=== PATIENT | female | born 1990 | race Caucasian/White ===

== ENCOUNTER → 2020-03-07 12:46 | Outpatient (BNVA) | payer OTHER, SELFPAY | PROVIDERS: Family Provider Internal Medicine; PCP Internal Medicine; Visit Provider Nurse Practitioner Family | DX: Z20.828 Contact with and (suspected) exposure to other viral communicable diseases (principal) | CPT/HCPCS: 87635 ==

== ENCOUNTER 2021-05-25 13:25 | Emergency (ER) | payer OTHER, SELFPAY ==
[2021-05-25 13:36] VITALS: BP 122/74; PULSE 117; RESP 18; TEMP 39.3; O2SAT 92; BMI 50.1
--- NOTE | 2021-05-25 14:45 | XRR_ITS ---
PROCEDURE INFORMATION: Exam: XR Chest Exam date and time: 05/25/2021 2:45 PM Age: 31 years old Clinical indication: Dyspnea TECHNIQUE: Imaging protocol: XR of the chest. Views: 1 view. COMPARISON: No relevant prior studies available. FINDINGS: Lungs: Hypoinflated lungs. Ill-defined peripheral left basilar opacity. Pleural spaces: Unremarkable. No pleural effusion. No pneumothorax. Heart/Mediastinum: Unremarkable. No cardiomegaly. Bones/joints: Unremarkable. XR/XR chest 1V portable [id number] IMPRESSION: Hypoinflated lungs. Ill-defined peripheral left basilar opacity potentially atelectasis or infiltrate.
[2021-05-25 15:20] VITALS: PULSE 120; RESP 16; O2SAT 87; O2SAT 88; O2SAT 95
[2021-05-25] MEDS: sodium chloride 0.9% 1,000 ML 999 ML IV (15:37)
[2021-05-25] MEDS: acetaminophen 500 mg Tablet 1000 MG PO (15:37)
[2021-05-25 15:41] LABS: Hematocrit 46.3 % (37.0-47.0); Hemoglobin 15.8 g/dL (11.5-15.3); Lymphocytes # 0.9 10^3/uL (0.8-4.8); Lymphocytes % 19.2 %; Mean Corpuscular HGB Conc 34.1 g/dL (30.0-36.0); Mean Corpuscular Hemoglobin 29.8 pg (28.0-34.0); Mean Corpuscular Volume 87.4 fl (81-99); Mean Platelet Volume 9.8 fL (7.4-10.4); Monocytes # 0.2 10^3/uL (0.2-0.9); Monocytes % 4.9 %; Neutrophils # 3.58 10^3/uL (1.8-7.7); Neutrophils % 75.7 %; Nucleated Red Blood Cells % 0 %; Platelet Count 159 10^3/cmm (130-400); Red Cell Distribution Width 12.7 % (12.1-15.1); White Blood Count 4.7 10^3/uL (4.0-10.0)
[2021-05-25 15:58] LABS: Alanine Aminotransferase 67 U/L (0-33); Alkaline Phosphatase 62 IU/L (35-105); Anion Gap 16.8 (5-19); Aspartate Amino Transferase 51 U/L (0-32); Blood Urea Nitrogen 7 mg/dL (6-20); Calcium 7.8 mg/dL (8.5-10.5); Carbon Dioxide 24 mmol/L (22-29); Chloride 103 mmol/L (98-107); Globulin 2.8 g/dL (1.3-4.6); Glomerular Filtration Rate 84.2 mL/min (90-130); Glucose 103 mg/dL (65-115); Lipase 18 U/L (13-60); Osmolality Calculated 288 mOsm/kg (285-295); Potassium 3.8 mmol/L (3.5-5.1); Sodium 140 mmol/L (136-145); Total Bilirubin 0.3 mg/dL (0.15-1.2); Total Protein 6.8 g/dL (6.6-8.7)
[2021-05-25 17:12] LABS: Adenovirus Not Detected (NOT DETECT); Chlamydia Pneumoniae Not Detected (NOT DETECT); Coronavirus 229E,HKU1,NL63,OC4 Not Detected (NOT DETECT); Human Metapneumovirus Not Detected (NOT DETECT); Human Rhinovirus/Enterovirus Not Detected (NOT DETECT); Influenza A Not Detected (NOT DETECT); Influenza A H1 Not Detected (NOT DETECT); Influenza A H1-2009 Not Detected (NOT DETECT); Influenza A H3 Not Detected (NOT DETECT); Influenza B Not Detected (NOT DETECT); Mycoplasma Pneumoniae Not Detected (NOT DETECT); Parainfluenza Virus Type 1 Not Detected (NOT DETECT); Parainfluenza Virus Type 2 Not Detected (NOT DETECT); Parainfluenza Virus Type 3 Not Detected (NOT DETECT); Parainfluenza Virus Type 4 Not Detected (NOT DETECT); Respiratory Syncytial Virus A Not Detected (NOT DETECT); Respiratory Syncytial Virus B Not Detected (NOT DETECT); SARS-COV-2 Detected (NOT DETECT)
--- NOTE | 2021-05-25 17:29 | ED_ITS ---
HPI - General Adult General: Chief complaint: COVID symptoms Stated complaint: BODY ACHES Time Seen by Provider: 05/25/21 14:45 History of Present Illness: HPI narrative: CC: Shortness of breath, fever and generalized weakness HPI: This is a [31] yo patient presenting to the ED with malaise, generalized weakness, cough sputum production, and fever at home x 2days. Since onset of symptoms, has had some shortness of breath and decreased PO intake. NO recent travel. Endorses no sick contacts around. Reports nausea, denies vomiting/diarrhea. Denies chest pain, diaphoresis, other GI or complaints. Denies any pleuritic chest pain, recent surgery/immobilization/travel, or hematemesis or hx of VTE in the past. Onset: 2days ago Duration: ongoing for the last 2 days Location: home Severity: moderate Review of Systems Narrative: Constitutional: +subjective fever, +generalized weakness HEENT: No vision changes CV: No chest pain, no palpitations PULM: +cough, +dyspnea. GI: No abdominal pain, no N/V/D. : No dysuria MSKEL: No muscle pain SKIN: No new rashes, no lesions. NEURO: No headache, no focal weakness. HEME: No visible bruises PSYCH: Normal mood Physical Exam Narrative: EXAM NARRATIVE: Head: Atraumatic Eyes: PERRL, conjunctiva without injection ENT: Mucous membrane moist NECK: Supple without lymphadenopathy LUNGS: Coarse lung sounds, no crackles/wheezes/rhonchi on exam CV: RRR ABDOMEN: Soft, nontender EXTREMITY: Normal ROM SKIN: No rash or erythema NEURO: Awake and alert. No focal motor deficits. PSYCH: Normal mood and affect. Course Vital Signs: Vital signs: Vital Signs Temperature 98.4 F 05/25/21 17:35 Pulse Rate 108 H 05/25/21 17:35 Respiratory Rate 18 05/25/21 17:35 Blood Pressure 118/72 05/25/21 17:35 Pulse Oximetry 99 05/25/21 17:37 MDM - General Adult MDM Narrative: Medical decision making narrative: [31]yo patient presenting to the ED with shortness of breath, cough, and malaise with findings of coarse breath soudns. Workup today includes XR chest and labs. Given History, Exam, and Workup presentation most consistent with pneumonia.Presentation not consistent with PE, COPD exacerbation, Pneumothorax, TB, Atypical ACS, Esophageal Rupture, Toxic Exposure, Foreign Body Airway Obstruction. Workup: CXR Chest, COVID antigen/ COVID PCR send out Intervention: Tylenol 1gram, PO challenge, serial reassessment, oxygen, decadron [5:30pm] On reassessment, XR findings of infiltration. Covid positive/ afebrile today - likely covid PNA. Despite XR findings of focal infiltrate, do not suspect bacterial PNA at the present given onset of symptoms, no leukocytosis, and positive covid test. Patient continues to sat at 95% on 2L oxygen. Given concerns for possible respiratory decompensation, I have offered patient admission for serial/close observation in the emergency room. At [5:30pm], Fever and tachycardia improved with IVF. Patient is able to tolerate PO without any difficulities. I have discussed the risks of leaving hospital today including risks of sudden pulmonary decompensation leading to severe respiratory distress and even . Patient verbalizes understanding the consequence of the risks of leaving the hospital today and alternative including staying for serial observation. Given patient's strong desire to go home, I have offered patient outpatient oxygen tank/supply and portable pulse ox with proper instruction to use at home. Patient agrees to monitor oxygen saturation and to come back to the ED if there is any drops in pulse ox reading despite oxygen use. In addition, I have given patient strict follow up with PCP in 24 hrs for reevalutaion. Patient verbalizes understanding of all components of our discussion today and reassures me of follow up with PCP and close monitoring. Disposition: Discharge. Patient is given strict return precautions for any worsening dypsnea, changes in pulse ox numbers, any worsening fatigue, dehydration, generalized weakness, altered mental status, or any new or concerning issues. Lab Data: Labs: Lab Results 05/25/21 05/25/21 05/25/21 15:15 15:30 15:30 WBC 4.7 10^3/uL 10^3/ uL (4.0-10.0) RBC 5.30 10^6/uL 10^6 /uL (4.1-5.3) Hgb 15.8 g/dL H g/dL (11.5-15.3) Hct 46.3 % % (37.0-47.0) MCV 87.4 fl fl (81-99) MCH 29.8 pg pg (28.0-34.0) MCHC 34.1 g/dL g/dL (30.0-36.0) RDW 12.7 % % (12.1-15.1) Plt Count 159 10^3/cmm 10^3 /cmm (130-400) MPV 9.8 fL fL (7.4-10.4) Neut % (Auto) 75.7 % % Lymph % (Auto) 19.2 % % [place] % (Auto) 4.9 % % Eos % (Auto) 0.0 % % Baso % (Auto) 0.0 % % Neut # (Auto) 3.58 10^3/uL 10^3 /uL (1.8-7.7) Lymph # (Auto) 0.9 10^3/uL 10^3/ uL (0.8-4.8) [place] # (Auto) 0.2 10^3/uL 10^3/ uL (0.2-0.9) Eos # (Auto) 0.0 10^3/uL 10^3/ uL (0.0-0.8) Baso # (Auto) 0.0 10^3/uL 10^3/ uL (0.0-0.1) Nucleated RBC % (a uto) 0 % % Nucleated RBCs # 0.0 /100WBC /100W BC Sodium 140 mmol/L mmol/L (136-145) Potassium 3.8 mmol/L mmol/L (3.5-5.1) Chloride 103 mmol/L mmol/L (98-107) Carbon Dioxide 24 mmol/L mmol/L (22-29) Anion Gap 16.8 (5-19) BUN 7 mg/dL mg/dL (6-20) Creatinine 0.8 mg/dL mg/dL (0.5-0.9) GFR Calculation 84.2 mL/min L mL/ min (90-130) Glucose 103 mg/dL mg/dL (65-115) Calculated Osmolal ity 288 mOsm/kg mOsm/ kg (285-295) Calcium 7.8 mg/dL L mg/dL (8.5-10.5) Total Bilirubin 0.3 mg/dL mg/dL (0.15-1.2) AST 51 U/L H U/L (0-32) ALT 67 U/L H U/L (0-33) Alkaline Phosphata se 62 IU/L IU/L (35-105) Total Protein 6.8 g/dL g/dL (6.6-8.7) Albumin 4.0 g/dL g/dL (3.5-5.2) Globulin 2.8 g/dL g/dL (1.3-4.6) Lipase 18 U/L U/L (13-60) Coronavirus 229E ( PCR) Not detected (NOT DETECT) SARS-CoV-2 (PCR) Detected A (NOT DETECT) Imaging Data^: Other Imaging: Radiologist's impression: [employer] [id number] ReportSigned Patient: Mercedez Patel #: [id number]: 1990Acct#:[id number]/Sex: 31 / FADM Date: 05/25/21Loc: ERRoo/Bed:Attending Dr: Ordering Provider/Ordering MD: Clara Hutchins MD Date of Service: 05/25/21 Procedure(s): XR chest 1V portable [id number] Accession Number(s): [id number] Report Number: [id number] PROCEDURE INFORMATION: Exam: XR Chest Exam date and time: 05/25/2021 2:45 PM Age: 31 years old Clinical indication: Dyspnea TECHNIQUE: Imaging protocol: XR of the chest. Views: 1 view. COMPARISON: No relevant prior studies available. FINDINGS: Lungs: Hypoinflated lungs. Ill-defined peripheral left basilar opacity. Pleural spaces: Unremarkable. No pleural effusion. No pneumothorax. Heart/Mediastinum: Unremarkable. No cardiomegaly. Bones/joints: Unremarkable. XR/XR chest 1V portable [id number] IMPRESSION: Hypoinflated lungs. Ill-defined peripheral left basilar opacity potentially atelectasis or infiltrate. Dictated By:Harjinder Harley DOSigned By:Harjinder Harley DOSigned Date/Time:05/25/21 1552DD/ 1445 Discharge Plan Discharge Patient Disposition: Home Clinical Impression: COVID, Nausea & vomiting, Generalized weakness, Fever Condition: Stable Prescriptions: New Zofran 4 mg tablet 4 mg PO TID PRN (Reason: nausea and vomiting) 4 Days Qty: 12 RF: 0 acetaminophen 500 mg tablet 500 mg PO Q6H PRN (Reason: pain) 5 Days Qty: 20 RF: 0 Pepcid 20 mg tablet 20 mg PO BID PRN (Reason: abdominal pain) 10 Days Qty: 20 RF: 0 Maalox Advanced 1,000-60 mg tablet,chewable 1 tab PO TID PRN (Reason: abdominal pain) 7 Days Qty: 21 RF: 0 Discharge Orders: Discharge ED (Routine); Ordered 05/25/21 Ordered By: Clara Hutchins Other Ambulatory Orders: DME: Oxygen (Order) Location: None Selected Ordered By: Clara Hutchins Referrals: Dyllan Lazo DO [Primary Care Provider] - Discharge Diet: Advance as tolerated Discharge Activity: Resume usual activity Patient Instructions: COVID-19 (Coronavirus Disease 2019) (ED) Activity Restrictions/Additional Instructions: Come back to the emergency room if your symptoms worsen, have any shortness of breath, fever/chills, dehydration, inability tolerate p.o., any difficulty breathing, or any new or concerning complaints. Please return the emergency room if your pulse ox reads less than 88%. 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
[2021-05-25 17:35] VITALS: BP 118/72; PULSE 108; RESP 18; TEMP 36.9; O2SAT 99
[2021-05-25 17:37] VITALS: O2SAT 99
== END 2021-05-25 18:37 | disposition home or self-care (01) ==
PROVIDERS: Emergency Provider Emergency Medicine; PCP Internal Medicine
DX: U07.1 COVID-19 (principal)
CPT/HCPCS: 71045; 80053; 83690; 85025; 87635; 96360; 99283; J7030

== ENCOUNTER 2021-05-28 09:51 | Inpatient (IN) | payer OTHER, SELFPAY ==
[2021-05-28] VITALS (12 sets, daily range): BP systolic 79–135; BP diastolic 62–90; PULSE 84–102; RESP 17–26; TEMP 37.3; O2SAT 83–98; BMI 50.1
--- NOTE | 2021-05-28 10:17 | XR_ITS ---
WS: [id number] Portable AP upright chest, 05/28/2021 Clinical Data: covid, sob Comparison: Portable chest, 05/25/2021. Findings: The patient has bilateral patchy pulmonary opacities which have increased significantly in the last 3 days. The heart size remains the same. No pneumothorax is present. XR/XR chest 1V portable [id number] Impression: Increase in bilateral patchy pulmonary opacities consistent with acute pneumoni a.
--- NOTE | 2021-05-28 10:31 | ECG_ITS ---
[facility] Test Date: 2021-05-28 Pat Name: Danya Patel Department: Room: Gender: Female Facilities Supervisor: : 1990 Requested By: Maria A Kumari Order Number: [id number] Jerome MD: Fredis Swenson M.D. Measurements Intervals Dille Rate: 94 P: 48 MI: 149 QRS: 43 QRSD: 98 T: 47 QT: 328 QTc: 410 Interpretive Statements SINUS RHYTHM No previous ECG available for comparison Electronically Signed On 05-28-2021 20:45:06 AIR VALUE TESTER by Fredis Swenson M.D. [id number]
--- NOTE | 2021-05-28 10:31 | CT_ITS ---
WS: [id number] CTA OF THE CHEST WITH PULMONARY EMBOLISM PROTOCOL TECHNIQUE: High-resolution contrast enhanced CTA of the chest with coronal and sagittal reformatted i janies with pulmonary embolism protocol. MIP images are also reviewed. CLINICAL INFORMATION: COVID, hypoxia, tachycardia COMPARISON: None. DLP: 491.[address] scans at [facility] use at least one of these dose optimization techniques: automated e xposure control; mA and/or kV adjustment per patient size (includes targeted exams where dose is matc hed to clinical indication); or iterative reconstruction. FINDINGS: Shallow inspiration. Extensive diffuse hazy groundglass infiltrates throughout both lungs compatible with Covid 19 pneumonia. Proximal main pulmonary arteries are normal. Proximal segmental pulmonary ar teries appear patent. Subsegmental arteries not well evaluated due to breathing artifact and body hab itus. Normal caliber thoracic aorta. No axillary lymphadenopathy. Hepatomegaly. Diffuse fatty infiltration liver. Cholecystectomy clips. Adrenal glands are normal. Sma ll disc osteophyte complex in the mid thoracic spine at T6-T7. CT/CT angio chest PE protcl [id number] IMPRESSION: 1. No evidence of pulmonary embolus where visualized 2. Extensive diffuse hazy ground glass infiltrates compatible with Covid 19 pn [place]. 3. No mediastinal or hilar lymphadenopathy. 4. Cholecystectomy. 5. Hepatomegaly diffuse fatty infiltration liver.
--- NOTE | 2021-05-28 10:32 | ED_ITS ---
Documented by User: LUIS ANGEL Oliveros 05/28/21 14:05 HPI - COVID General: Chief Complaint: COVID symptoms Stated Complaint: COVID +/SOB/BODY ACHES/COUGHING BLOOD Time Seen by Provider: 05/28/21 10:04 Source: patient Mode of arrival: ambulatory Limitations: no limitations Triage information: Has fever, cough or shortness of breath . Exposure to COVID + person last 14 days History of Present Illness: HPI Narrative: Patient is a 31-year-old female who presents to ED today with complaints of worsening COVID symptoms. Patient complains of shortness of breath, cough, difficulty breathing, headache, and body aches. She was seen at our facility 2 to 3 days ago and apparently offered admission but she refused. According to patient she was sent home with 2L oxygen via nasal cannula and states she was satting in the mid 90s upon discharge. She said since that time symptoms have progressively worsened. She arrives to the ED today satting in the 80s on 5 to 6 L nasal cannula. PMH is significant for obesity. MD complaint: known COVID positive Prior covid testing: yes, results known Prior testing date: 05/25/21 COVID 19 common symptoms: positive non-productive cough, dyspnea, fatigue, body aches, headache(s) and nasal congestion; negative fever(s), chills, nausea, vomiting or diarrhea COVID 19 other sytmptoms: positive chest pain Pertinent comorbid conditions: obesity Treatment prior to arrival: oxygen COVID Results: SARS-CoV-2 RNA (RT-PCR) Not detected (NOT DETECTED) 03/07/20 12:46 03/07/20 Review of Systems Const: Reports: body aches and fatigue; Denies: fever(s) or chills Eyes: Denies: change in vision ENMT: Reports: nasal discharge and nasal congestion Card: Reports: chest pain, dyspnea on exertion and orthopnea; Denies: palpitations, irregular heart rhythm, edema, swelling of feet/ankles, lightheadedness, syncope, pre-syncope, leg pain with exertion or acrocyanosis Resp: Reports: dyspnea, non-productive cough and chest congestion; Denies: wheezing or hemoptysis GI: Denies: abdominal pain, nausea, vomiting or diarrhea Musc: Denies: neck pain, back pain, extremity pain or joint pain Skin/Breast: Denies: rash Neuro: Reports: headache(s); Denies: numbness in extremities, weakness in extremities, sensory changes or dizziness PFS ED PFSH: Medical History (Updated 05/28/21 @ 11:59 by Thiago Tinsley MD) Morbid obesity Family History (Updated 05/28/21 @ 14:00 by Thiago Tinsley MD) Denies family history of CAD (coronary artery disease) Cancer Social History (Updated 05/28/21 @ 14:11 by Thiago Tinsley MD) Smoking and tobacco status: never smoked Alcohol intake: unknown Substance/Drug Use: unknown Lives independently: Yes Household members: significant other Housing: House Physical Exam Const: COMMON NORMALS: patient oriented x3, no limitations and alert GENERAL APPEARANCE: cooperative and in distress (acute respiratory distress with hypoxia) NUTRITIONAL APPEARANCE: obese morbidly obese ORIENTATION/CONSCIOUSNESS: Yes awake, Yes oriented to person, Yes oriented to place and Yes oriented to time HENMT: COMMON NORMALS: normocephalic and atraumatic HEAD & SCALP: normocephalic and atraumatic Resp: EFFORT & INSPECTION: Yes labored AUSCULTATION: diminished lung sounds diffuse Cardio: COMMON NORMALS: regular rhythm RATE: tachycardic (mild) RHYTHM: regular rhythm Extremity: COMMON NORMALS: normal to inspection Neuro: SHAWN COMA SCALE: document GCS findings Shawn coma scale eye opening: Spontaneous Ashley coma scale verbal response: Orientated Ashley coma scale motor response: Obey commands Ashley coma scale total score: 15 COMMON NORMALS: patient oriented x3, moves all extremities, no focal motor deficits and no sensory deficits noted SENSORIUM/ORIENTATION: Yes alert, Yes oriented to person, Yes oriented to place and Yes oriented to time Skin: COMMON NORMALS: no rashes or lesions noted GENERAL SKIN EXAM: no rashes or lesions noted Course Consultations: Consultation #1: Dr. Simms-recommends heated high flow oxygen, IV remdesivir and dexamethasone and admit to ICU Vital Signs: Vital signs: Vital Signs Temperature 99.1 F 05/28/21 10:33 Pulse Rate 97 05/28/21 14:08 Respiratory Rate 20 H 05/28/21 14:08 Blood Pressure 135/90 05/28/21 14:08 Pulse Oximetry 95 05/28/21 14:08 MDM - COVID MDM Narrative: Medical decision making narrative: Patient now requiring 15 L on a nonrebreather to sat in the mid 90s. CXR showing an increase in her pulmonary opacities. CTA does not show any PE but does show extensive infiltrates consistent with COVID-19 pneumonia. Patient will need to be an admit to the hospital. Spoke to hospitalist Dr. Simms who graciously accepts admit. Recommend starting IV dexamethasone and remdesivir and having the patient placed on heated high flow. Recommends admission to ICU. I spoke to Dr. Yi who agrees with need for admission and will place admit orders. Lab Data: Labs: Lab Results 05/28/21 05/28/21 05/28/21 10:54 10:54 10:54 WBC 5.2 10^3/uL 10^3/ uL (4.0-10.0) RBC 5.22 10^6/uL 10^6 /uL (4.1-5.3) Hgb 15.3 g/dL g/dL (11.5-15.3) Hct 45.7 % % (37.0-47.0) MCV 87.5 fl fl (81-99) MCH 29.3 pg pg (28.0-34.0) MCHC 33.5 g/dL g/dL (30.0-36.0) RDW 12.8 % % (12.1-15.1) Plt Count 154 10^3/cmm 10^3 /cmm (130-400) MPV 9.7 fL fL (7.4-10.4) Neut % (Auto) 85.2 % % Lymph % (Auto) 13.0 % % [place] % (Auto) 1.2 % % Eos % (Auto) 0.0 % % Baso % (Auto) 0.2 % % Neut # (Auto) 4.41 10^3/uL 10^3 /uL (1.8-7.7) Lymph # (Auto) 0.7 10^3/uL L 10^ 3/uL (0.8-4.8) [place] # (Auto) 0.1 10^3/uL L 10^ 3/uL (0.2-0.9) Eos # (Auto) 0.0 10^3/uL 10^3/ uL (0.0-0.8) Baso # (Auto) 0.0 10^3/uL 10^3/ uL (0.0-0.1) Nucleated RBC % (a uto) 0 % % Nucleated RBCs # 0.0 /100WBC /100W BC PT 14.20 SECONDS SEC ONDS (12.1-14.9) INR 1.07 (0.8-1.2) APTT 32.8 SECONDS SECO NDS (23.9-36.7) Fibrinogen 501 mg/dL H mg/dL (174-498) D-Dimer 1.30 ug/mIFEU H u g/mIFEU (0-0.59) Sodium 138 mmol/L mmol/L (136-145) Potassium 3.7 mmol/L mmol/L (3.5-5.1) Chloride 99 mmol/L mmol/L (98-107) Carbon Dioxide 22 mmol/L mmol/L (22-29) Anion Gap 20.7 H (5-19) BUN 8 mg/dL mg/dL (6-20) Creatinine 0.9 mg/dL mg/dL (0.5-0.9) GFR Calculation 73.5 mL/min L mL/ min (90-130) Glucose 106 mg/dL mg/dL (65-115) Calculated Osmolal ity 285 mOsm/kg mOsm/ kg (285-295) Lactic Acid Calcium 7.9 mg/dL L mg/dL (8.5-10.5) Iron TIBC % Saturation Unsat Iron Binding Ferritin 3429 ng/mL H ng/m L (15-150) Total Bilirubin 0.4 mg/dL mg/dL (0.15-1.2) AST 244 U/L H U/L (0-32) ALT 240 U/L H U/L (0-33) Alkaline Phosphata se 73 IU/L IU/L (35-105) C-Reactive Protein 135.4 mg/L H mg/L (0.0-4.9) NT-Pro-B Natriuret Pep 38 pg/mL pg/mL (0-125) Total Protein 6.9 g/dL g/dL (6.6-8.7) Albumin 3.9 g/dL g/dL (3.5-5.2) Globulin 3.0 g/dL g/dL (1.3-4.6) Procalcitonin 100.00 ng/mL H ng /mL (0-0.5) TSH Urine Color Urine Appearance Urine pH Ur Specific Gravit y Urine Protein Urine Glucose (UA) Urine Ketones Urine Blood Urine Nitrate Urine Bilirubin Urine Urobilinogen Ur Leukocyte Lisa ase Urine RBC Urine WBC Ur Squamous Epith Cells Amorphous Sediment Urine Bacteria 05/28/21 05/28/21 05/28/21 10:54 10:54 10:54 WBC RBC Hgb Hct MCV MCH MCHC RDW Plt Count MPV Neut % (Auto) Lymph % (Auto) [place] % (Auto) Eos % (Auto) Baso % (Auto) Neut # (Auto) Lymph # (Auto) [place] # (Auto) Eos # (Auto) Baso # (Auto) Nucleated RBC % (a uto) Nucleated RBCs # PT INR APTT Fibrinogen D-Dimer Sodium Potassium Chloride Carbon Dioxide Anion Gap BUN Creatinine GFR Calculation Glucose Calculated Osmolal ity Lactic Acid 0.8 mmol/L mmol/L (0.5-2.2) Calcium Iron 16 ug/dL L ug/dL (37-145) TIBC 219 mcg/dl mcg/dl % Saturation 7.3 % L % (20-50) Unsat Iron Binding 203 ug/dL ug/dL (112-347) Ferritin Total Bilirubin AST ALT Alkaline Phosphata se C-Reactive Protein NT-Pro-B Natriuret Pep Total Protein Albumin Globulin Procalcitonin TSH 1.50 uIU/mL uIU/m L (0.27-4.20) Urine Color Urine Appearance Urine pH Ur Specific Gravit y Urine Protein Urine Glucose (UA) Urine Ketones Urine Blood Urine Nitrate Urine Bilirubin Urine Urobilinogen Ur Leukocyte Lisa ase Urine RBC Urine WBC Ur Squamous Epith Cells Amorphous Sediment Urine Bacteria 05/28/21 13:35 WBC RBC Hgb Hct MCV MCH MCHC RDW Plt Count MPV Neut % (Auto) Lymph % (Auto) [place] % (Auto) Eos % (Auto) Baso % (Auto) Neut # (Auto) Lymph # (Auto) [place] # (Auto) Eos # (Auto) Baso # (Auto) Nucleated RBC % (a uto) Nucleated RBCs # PT INR APTT Fibrinogen D-Dimer Sodium Potassium Chloride Carbon Dioxide Anion Gap BUN Creatinine GFR Calculation Glucose Calculated Osmolal ity Lactic Acid Calcium Iron TIBC % Saturation Unsat Iron Binding Ferritin Total Bilirubin AST ALT Alkaline Phosphata se C-Reactive Protein NT-Pro-B Natriuret Pep Total Protein Albumin Globulin Procalcitonin TSH Urine Color Yellow (Yellow) Urine Appearance Clear (CLEAR) Urine pH 6.5 (5-7) Ur Specific Gravit y 1.005 (1.005-1.030) Urine Protein 1+ H (Negative) Urine Glucose (UA) Norm (Normal) Urine Ketones 2+ H (Negative) Urine Blood Neg (Negative) Urine Nitrate Negative (Negative) Urine Bilirubin Neg (Negative) Urine Urobilinogen Norm mg/dL mg/dL (Negative) Ur Leukocyte Lisa ase Negative (Negative) Urine RBC 0-4 /hpf H /hpf (0-2) Urine WBC 0-4 /hpf H /hpf (0-5) Ur Squamous Epith Cells 0-4 /hpf H /hpf (0-5) Amorphous Sediment Not Reportable Urine Bacteria 1+ /hpf H /hpf (NONE) Imaging Data: CXR: Radiologist's impression: [place] [address] XRay Report Signed Patient: Danya Patel Unit #: [id number] : 1990 Age/Sex: 31 / F ADM Date: 05/28/21 Loc: ER Room/Bed: Attending Dr: Ordering Provider/Ordering MD: Maria A Kumari Date of Service: 05/28/21 Procedure(s): XR chest 1V portable 14046 Accession Number(s): [id number] Report Number: [id number] WS: [id number] Portable AP upright chest, 05/28/2021 Clinical Data: covid, sob Comparison: Portable chest, 05/25/2021. Findings: The patient has bilateral patchy pulmonary opacities which have increased significantly in the last 3 days. The heart size remains the same. No pneumothorax is present. XR/XR chest 1V portable [id number] Impression: Increase in bilateral patchy pulmonary opacities consistent with acute pneumonia. Dictated By: Sarah Natarajan MD Signed By: Sarah Natarajan MD Signed Date/Time: 05/28/21 1045 DD/ 1043 CTA Chest: Radiologist's impression: [place] [id number] CT Scan Report Signed Patient: Danya Patel Unit #: [id number] : 1990 Age/Sex: 31 / F ADM Date: 05/28/21 Loc: ER Room/Bed: Attending Dr: Ordering Provider/Ordering MD: Maria A Kumari Date of Service: 05/28/21 Procedure(s): CT angio chest PE protcl [id number] Accession Number(s): [id number] Report Number: [id number] WS: [id number] CTA OF THE CHEST WITH PULMONARY EMBOLISM PROTOCOL TECHNIQUE: High-resolution contrast enhanced CTA of the chest with coronal and sagittal reformatted images with pulmonary embolism protocol. MIP images are also reviewed. CLINICAL INFORMATION: COVID, hypoxia, tachycardia COMPARISON: None. DLP: 491.[address] scans at [facility] use at least one of these dose optimization techniques: automated exposure control; mA and/or kV adjustment per patient size (includes targeted exams where dose is matched to clinical indication); or iterative reconstruction. FINDINGS: Shallow inspiration. Extensive diffuse hazy groundglass infiltrates throughout both lungs compatible with Covid 19 pneumonia. Proximal main pulmonary arteries are normal. Proximal segmental pulmonary arteries appear patent. Subsegmental arteries not well evaluated due to breathing artifact and body habitus. Normal caliber thoracic aorta. No axillary lymphadenopathy. Hepatomegaly. Diffuse fatty infiltration liver. Cholecystectomy clips. Adrenal glands are normal. Small disc osteophyte complex in the mid thoracic spine at T6-T7. CT/CT angio chest PE protcl [id number] IMPRESSION: 1. No evidence of pulmonary embolus where visualized 2. Extensive diffuse hazy ground glass infiltrates compatible with Covid 19 pneumonia. 3. No mediastinal or hilar lymphadenopathy. 4. Cholecystectomy. 5. Hepatomegaly diffuse fatty infiltration liver. Dictated By: Moses Akhtar MD Signed By: Moses Akhtar MD Signed Date/Time: 05/28/21 1139 DD/ 1131 COVID Results: SARS-CoV-2 RNA (RT-PCR) Not detected (NOT DETECTED) 03/07/20 12:46 03/07/20 Discharge Plan Discharge Patient Disposition: Admitted As Inpatient Clinical Impression: COVID-19, Acute respiratory failure due to COVID-19 Condition: Stable Coding Level of Care Code ED Forming Machine Operator for Chg Fwd Exam Detailed Documented by User: Kathryn Yi MD 05/28/21 14:34 HPI - COVID General: Chief Complaint: COVID symptoms Stated Complaint: COVID +/SOB/BODY ACHES/COUGHING BLOOD Time Seen by Provider: 05/28/21 10:04 COVID Results: SARS-CoV-2 RNA (RT-PCR) Not detected (NOT DETECTED) 03/07/20 12:46 03/07/20 [facility] ED PFSH: Medical History (Updated 05/28/21 @ 11:59 by Thiago Tinsley MD) Morbid obesity Family History (Updated 05/28/21 @ 14:00 by Thiago Tinsley MD) Denies family history of CAD (coronary artery disease) Cancer Social History (Updated 05/28/21 @ 14:11 by Thiago Tinsley MD) Smoking and tobacco status: never smoked Alcohol intake: unknown Substance/Drug Use: unknown Lives independently: Yes Household members: significant other Housing: House Course Vital Signs: Vital signs: Vital Signs Temperature 99.1 F 05/28/21 10:33 Pulse Rate 97 05/28/21 14:08 Respiratory Rate 20 H 05/28/21 14:08 Blood Pressure 135/90 05/28/21 14:08 Pulse Oximetry 95 05/28/21 14:08 MDM - COVID MDM Narrative: Medical decision making narrative: This is a 31-year-old female with acute respiratory failure due to Covid?19 currently requiring OptiFlow 35 L @45% to maintain O2 sats above 90%. She is alert and oriented, in mild respiratory distress. She has been evaluated by the test lead application testing hospitalist and needs ICU admission, however there is a severe bed shortage throughout the state and we have not yet been able to find one. Will continue this efforts. In the meantime, she is being treated with remdesivir, vanc &zosyn, decadron, (preventative)anticoagulation, , vitamin C, Zinc. Lab Data: Labs: Lab Results 05/28/21 05/28/21 05/28/21 10:54 10:54 10:54 WBC 5.2 10^3/uL 10^3/ uL (4.0-10.0) RBC 5.22 10^6/uL 10^6 /uL (4.1-5.3) Hgb 15.3 g/dL g/dL (11.5-15.3) Hct 45.7 % % (37.0-47.0) MCV 87.5 fl fl (81-99) MCH 29.3 pg pg (28.0-34.0) MCHC 33.5 g/dL g/dL (30.0-36.0) RDW 12.8 % % (12.1-15.1) Plt Count 154 10^3/cmm 10^3 /cmm (130-400) MPV 9.7 fL fL (7.4-10.4) Neut % (Auto) 85.2 % % Lymph % (Auto) 13.0 % % [place] % (Auto) 1.2 % % Eos % (Auto) 0.0 % % Baso % (Auto) 0.2 % % Neut # (Auto) 4.41 10^3/uL 10^3 /uL (1.8-7.7) Lymph # (Auto) 0.7 10^3/uL L 10^ 3/uL (0.8-4.8) [place] # (Auto) 0.1 10^3/uL L 10^ 3/uL (0.2-0.9) Eos # (Auto) 0.0 10^3/uL 10^3/ uL (0.0-0.8) Baso # (Auto) 0.0 10^3/uL 10^3/ uL (0.0-0.1) Nucleated RBC % (a uto) 0 % % Nucleated RBCs # 0.0 /100WBC /100W BC PT 14.20 SECONDS SEC ONDS (12.1-14.9) INR 1.07 (0.8-1.2) APTT 32.8 SECONDS SECO NDS (23.9-36.7) Fibrinogen 501 mg/dL H mg/dL (174-498) D-Dimer 1.30 ug/mIFEU H u g/mIFEU (0-0.59) Sodium 138 mmol/L mmol/L (136-145) Potassium 3.7 mmol/L mmol/L (3.5-5.1) Chloride 99 mmol/L mmol/L (98-107) Carbon Dioxide 22 mmol/L mmol/L (22-29) Anion Gap 20.7 H (5-19) BUN 8 mg/dL mg/dL (6-20) Creatinine 0.9 mg/dL mg/dL (0.5-0.9) GFR Calculation 73.5 mL/min L mL/ min (90-130) Glucose 106 mg/dL mg/dL (65-115) Calculated Osmolal ity 285 mOsm/kg mOsm/ kg (285-295) Lactic Acid Calcium 7.9 mg/dL L mg/dL (8.5-10.5) Iron TIBC % Saturation Unsat Iron Binding Ferritin 3429 ng/mL H ng/m L (15-150) Total Bilirubin 0.4 mg/dL mg/dL (0.15-1.2) AST 244 U/L H U/L (0-32) ALT 240 U/L H U/L (0-33) Alkaline Phosphata se 73 IU/L IU/L (35-105) C-Reactive Protein 135.4 mg/L H mg/L (0.0-4.9) NT-Pro-B Natriuret Pep 38 pg/mL pg/mL (0-125) Total Protein 6.9 g/dL g/dL (6.6-8.7) Albumin 3.9 g/dL g/dL (3.5-5.2) Globulin 3.0 g/dL g/dL (1.3-4.6) Procalcitonin 100.00 ng/mL H ng /mL (0-0.5) TSH Urine Color Urine Appearance Urine pH Ur Specific Gravit y Urine Protein Urine Glucose (UA) Urine Ketones Urine Blood Urine Nitrate Urine Bilirubin Urine Urobilinogen Ur Leukocyte Lisa ase Urine RBC Urine WBC Ur Squamous Epith Cells Amorphous Sediment Urine Bacteria 05/28/21 05/28/21 05/28/21 10:54 10:54 10:54 WBC RBC Hgb Hct MCV MCH MCHC RDW Plt Count MPV Neut % (Auto) Lymph % (Auto) [place] % (Auto) Eos % (Auto) Baso % (Auto) Neut # (Auto) Lymph # (Auto) [place] # (Auto) Eos # (Auto) Baso # (Auto) Nucleated RBC % (a uto) Nucleated RBCs # PT INR APTT Fibrinogen D-Dimer Sodium Potassium Chloride Carbon Dioxide Anion Gap BUN Creatinine GFR Calculation Glucose Calculated Osmolal ity Lactic Acid 0.8 mmol/L mmol/L (0.5-2.2) Calcium Iron 16 ug/dL L ug/dL (37-145) TIBC 219 mcg/dl mcg/dl % Saturation 7.3 % L % (20-50) Unsat Iron Binding 203 ug/dL ug/dL (112-347) Ferritin Total Bilirubin AST ALT Alkaline Phosphata se C-Reactive Protein NT-Pro-B Natriuret Pep Total Protein Albumin Globulin Procalcitonin TSH 1.50 uIU/mL uIU/m L (0.27-4.20) Urine Color Urine Appearance Urine pH Ur Specific Gravit y Urine Protein Urine Glucose (UA) Urine Ketones Urine Blood Urine Nitrate Urine Bilirubin Urine Urobilinogen Ur Leukocyte Lisa ase Urine RBC Urine WBC Ur Squamous Epith Cells Amorphous Sediment Urine Bacteria 05/28/21 13:35 WBC RBC Hgb Hct MCV MCH MCHC RDW Plt Count MPV Neut % (Auto) Lymph % (Auto) [place] % (Auto) Eos % (Auto) Baso % (Auto) Neut # (Auto) Lymph # (Auto) [place] # (Auto) Eos # (Auto) Baso # (Auto) Nucleated RBC % (a uto) Nucleated RBCs # PT INR APTT Fibrinogen D-Dimer Sodium Potassium Chloride Carbon Dioxide Anion Gap BUN Creatinine GFR Calculation Glucose Calculated Osmolal ity Lactic Acid Calcium Iron TIBC % Saturation Unsat Iron Binding Ferritin Total Bilirubin AST ALT Alkaline Phosphata se C-Reactive Protein NT-Pro-B Natriuret Pep Total Protein Albumin Globulin Procalcitonin TSH Urine Color Yellow (Yellow) Urine Appearance Clear (CLEAR) Urine pH 6.5 (5-7) Ur Specific Gravit y 1.005 (1.005-1.030) Urine Protein 1+ H (Negative) Urine Glucose (UA) Norm (Normal) Urine Ketones 2+ H (Negative) Urine Blood Neg (Negative) Urine Nitrate Negative (Negative) Urine Bilirubin Neg (Negative) Urine Urobilinogen Norm mg/dL mg/dL (Negative) Ur Leukocyte Lisa ase Negative (Negative) Urine RBC 0-4 /hpf H /hpf (0-2) Urine WBC 0-4 /hpf H /hpf (0-5) Ur Squamous Epith Cells 0-4 /hpf H /hpf (0-5) Amorphous Sediment Not Reportable Urine Bacteria 1+ /hpf H /hpf (NONE) COVID Results: SARS-CoV-2 RNA (RT-PCR) Not detected (NOT DETECTED) 03/07/20 12:46 03/07/20 Discharge Plan Discharge Patient Disposition: Admitted As Inpatient Clinical Impression: COVID-19, Acute respiratory failure due to COVID-19 Condition: Stable Coding Level of Care Code ED Forming Machine Operator for Chg Fwd Exam Detailed
[2021-05-28 11:01] LABS: Basophils % 0.2 %; Hematocrit 45.7 % (37.0-47.0); Hemoglobin 15.3 g/dL (11.5-15.3); Lymphocytes # 0.7 10^3/uL (0.8-4.8); Mean Corpuscular HGB Conc 33.5 g/dL (30.0-36.0); Mean Corpuscular Hemoglobin 29.3 pg (28.0-34.0); Mean Corpuscular Volume 87.5 fl (81-99); Mean Platelet Volume 9.7 fL (7.4-10.4); Monocytes # 0.1 10^3/uL (0.2-0.9); Monocytes % 1.2 %; Neutrophils # 4.41 10^3/uL (1.8-7.7); Neutrophils % 85.2 %; Nucleated Red Blood Cells % 0 %; Platelet Count 154 10^3/cmm (130-400); Red Blood Count 5.22 10^6/uL (4.1-5.3); Red Cell Distribution Width 12.8 % (12.1-15.1); White Blood Count 5.2 10^3/uL (4.0-10.0)
[2021-05-28 11:20] LABS: INR 1.07 (0.8-1.2); Partial Thromboplastin Time 32.8 SECONDS (23.9-36.7)
[2021-05-28] MEDS: iohexol 350 mg/mL 100 mL Btl IV (11:20)
[2021-05-28 11:21] LABS: Fibrinogen 501 mg/dL (174-498)
[2021-05-28 11:22] LABS: Lactic Sepsis W/Reflex 0.8 mmol/L (0.5-2.2); Slide Review Slide Review Perform
[2021-05-28 11:33] LABS: NT Pro B Type Natriuretic Pept 38 pg/mL (0-125)
[2021-05-28 11:44] LABS: Alanine Aminotransferase 240 U/L (0-33); Albumin Level 3.9 g/dL (3.5-5.2); Alkaline Phosphatase 73 IU/L (35-105); Anion Gap 20.7 (5-19); Aspartate Amino Transferase 244 U/L (0-32); Blood Urea Nitrogen 8 mg/dL (6-20); C Reactive Protein 135.4 mg/L (0.0-4.9); Calcium 7.9 mg/dL (8.5-10.5); Carbon Dioxide 22 mmol/L (22-29); Chloride 99 mmol/L (98-107); Glomerular Filtration Rate 73.5 mL/min (90-130); Glucose 106 mg/dL (65-115); Osmolality Calculated 285 mOsm/kg (285-295); Potassium 3.7 mmol/L (3.5-5.1); Sodium 138 mmol/L (136-145); Total Bilirubin 0.4 mg/dL (0.15-1.2); Total Protein 6.9 g/dL (6.6-8.7)
--- NOTE | 2021-05-28 11:57 | USCV_ITS ---
Danya Patel Age: 31 Gender: F : 1990 Exam Date: 05/28/2021 12:39 Ordering Phys: Thiago Tinsley MD Technologist: FRANK Exam Location: [facility] [place] Indication: DVT HISTORY: Lower extremity swelling. PROCEDURES: The venous duplex Doppler examination of both lower extremities was performed in the standard fashion. The following venous structures were evaluated: common femoral vein, profunda vein, proximal portion of the greater saphenous vein, superficial femoral vein, and the popliteal vein. In addition, the posterior tibial and peroneal trunk were evaluated. FINDINGS: TDS Normal 2-D Doppler and augmentation and compressibility throughout the lower extremity venous structures. Additional imaging through the proximal calf veins also reveals no thrombus. Limited evaluation of the greater saphenous vein is patent with no thrombus.. CONCLUSIONS No evidence of right lower extremity DVT. No evidence of left lower extremity DVT. Moses Akhtar MD (Electronically Signed) Final Date: 28 May 2021 13:09 S
--- NOTE | 2021-05-28 11:59 | PM.HP ---
Providers/Chief Complaint Primary Care Provider: Dyllan Lazo DO Chief Complaint: COVID +/SOB/BODY ACHES/COUGHING BLOOD History of Present Illness Danya Patel is a 31 year old female with past surgical history of morbid obesity who was diagnosed with COVID-19 on 05/25, not vaccinated for COVID-19. Patient presented to the ER 2 days ago because of difficulty in breathing at that time she refused admission and was discharged home on nasal cannula 2 L. She comes back today with worsening difficulty in breathing, cough, myalgia requiring up to 8 L on it presentation currently on 35 L 45% saturating 89 to 90%. Review of Systems General: Reports: 10 or more systems reviewed and unremarkable except in HPI and below Const: Denies: fever(s), chills, body aches, change in appetite, change in weight, malaise, night sweats, diaphoresis, change in sleep pattern, daytime sleepiness or snoring Eyes: Denies: change in vision, blurry vision, photophobia, eye discomfort or eye discharge ENMT: Denies: throat pain, enlarged tonsils, hoarseness, mouth pain, oral sores, dry mouth, tinnitus, nasal congestion or post nasal drip Card: Denies: chest pain, palpitations, irregular heart rhythm, edema, swelling of feet/ankles, lightheadedness, syncope, pre-syncope, dyspnea on exertion, orthopnea, leg pain with exertion or acrocyanosis Resp: Denies: dyspnea, productive cough, non-productive cough, wheezing, stridor, pain on inspiration, change in phlegm color, hemoptysis or chest congestion GI: Denies: abdominal pain, nausea, vomiting, hematemesis, coffee ground emesis, dysphagia, heartburn, diarrhea, constipation, bloating, GI cramping, change in bowel habits, pain on defecation, hematochezia or melena : Denies: flank pain, dysuria, urinary frequency, urinary urgency, urinary hesitancy, nocturia or hematuria Musc: Denies: neck pain, back pain, extremity pain, joint pain, joint swelling, joint redness, joint stiffness or limited range of motion Neuro: Denies: headache(s), numbness in extremities, weakness in extremities, sensory changes, lack of coordination, difficulty walking, frequent falls, dizziness, vertigo, confusion, Slurred speech present, difficulty communicating thoughts or seizure-like activity Psych: Denies: anxiety, depression, mood swings, panic attacks, hopelessness or irritability Endo: Denies: polyuria, polydipsia, tired all the time, cold intolerance, excessive sweating, flushing or heat intolerance Soham/Lymph: Denies: easy bruising or easy bleeding All/Imm: Denies: tongue swelling, facial swelling or acute wheezing Medications/Allergies Home Medications Medication Instructions Recorded Confirmed Last Taken Type acetaminophen 500 mg PO Q6H PRN 5 Days #20 tab 05/25/21 05/28/21 Unknown Rx calcium carbonate-simethicone 1 tab PO TID PRN 7 Days #21 tab 05/25/21 05/28/21 Unknown Rx [Maalox Advanced] famotidine [Pepcid] 20 mg PO BID PRN 10 Days #20 tab 05/25/21 05/28/21 05/27/21 Rx ondansetron HCl [Zofran] 4 mg PO TID PRN 4 Days #12 tab 05/25/21 05/28/21 Unknown Rx Allergies Allergy/AdvReac Type Severity Reaction Status Date / Time No Known Allergies Allergy Unverified 05/25/21 13:36 PFSH Acute PFSH: Medical History (Updated 05/28/21 @ 11:59 by Thiago Tinsley MD) Morbid obesity Family History (Updated 05/28/21 @ 14:00 by Thiago Tinsley MD) Denies family history of CAD (coronary artery disease) Cancer Social History (Updated 05/28/21 @ 14:11 by Thiago Tinsley MD) Smoking and tobacco status: never smoked Alcohol intake: unknown Substance/Drug Use: unknown Lives independently: Yes Household members: significant other Housing: House Vitals/I&O/Wt Last Vital Signs Temp 99.1 F 05/28/21 10:33 Pulse 101 H 05/28/21 11:27 Resp 20 H 05/28/21 11:27 BP 79/64 05/28/21 10:33 Pulse Ox 95 05/28/21 11:27 Weight last 48 hrs Weight 149.685 kg Physical Exam Narrative: EXAM NARRATIVE: General: No acute distress, AO x3 HEENT: PERRLA, pupils bilaterally equal and reactive Chest: Normal vesicular breath sounds, no added sounds, equal good air entry bilaterally CVS: S1-S2 regular, no murmurs, no tachycardia, no gallops, no rubs Abdomen: Soft, nontender, no organomegaly, bowel sounds present Neuro: No focal deficits, no facial deformity, AO x3, power 5/5 in all limbs Data : 05/28/21 10:54 05/28/21 10:54 A&P Assessment and plan (1) Acute respiratory failure due to COVID-19: Status: Acute (2) COVID-19: Status: Acute Additional A&P Information Hypoxic respiratory failure secondary to COVID-19 pneumonia: Severe disease Switch from nonrebreather to heated high flow. Oxygen supplementation keeping saturation over 88%. Dexamethasone 6 mg daily. Remdesivir to finish a 5-day course. Vitamin C, zinc. DuoNebs every 6 hour, budesonide twice daily Pulmonary toilet with incentive spirometry flutter valve. We will monitor inflammatory markers including D-dimer, CRP every 48 hours. If getting elevated will dose Actemra. Patient was made aware of the same and he has given verbal consent. D-dimer elevated. CTA negative for pulmonary embolism. For now we will start patient on full dose anticoagulation given morbid obesity and high oxygen requirement. Will monitor for anemia or blood loss. Check sputum culture, procalcitonin, urine Legionella, bacterial antigen, blood culture, MRSA swab. Procalcitonin extremely elevated. For now as patient is requiring high oxygen supplementation will start patient on vancomycin and Zosyn. Will de-escalate antibiotics as per culture results Given hypoxia will try to keep patient as negative as possible. Patient clinically dehydrated for now and hypotensive upon arrival. Seems to have improved. For now hold off on any further hydration or diuresis today. Hastings catheterization. Strict input output charting, daily weights. Morbid obesity. Cannot rule out underlying obstructive sleep apnea. Full code. Yolandequasad will have a DVT prophylaxis. Famotidine for PUD prophylaxis. Mechanical soft diet. Patient's care discussed in detail with patient and her significant other Mr. Grande all over the phone. Guarded prognosis given ARDS, morbid obesity. Admit to ICU. If not able to get an ICU bed have asked the residential door unit installer to see if we can transfer patient to a different facility where ICU bed is available. The above has been discussed in detail with the patient and Mr. Grande as well. Attestations Medical Necessity Statement*: Admission for more than 2 midnights for management of hypoxic respiratory failure secondary to COVID-19 pneumonia Critical Care Time: The high probability of a clinically significant, sudden or life threatening deterioration of the patient's [respiratory] system(s) required my full and direct attention, intervention and personal management. The critical care time is as shown. 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
[2021-05-28 12:04] LABS: Ferritin 3429 ng/mL (15-150)
[2021-05-28] MEDS: sodium chloride 0.9% 1,000 ML 500 ML IV (12:09)
[2021-05-28] MEDS: dexamethasone 10 mg/mL INJ 6 MG IVP (12:59)
[2021-05-28] MEDS: famotidine 20 mg/2 mL INJ IVP (12:59)
[2021-05-28] MEDS: zinc gluconate 50 mg Tablet PO (13:10)
[2021-05-28] MEDS: remdesivir 200 MG in sodium chloride 0.9% (100 ml) 60 ML 100 MG IV (13:10)
[2021-05-28 14:09] LABS: Urine Appearance Clear (CLEAR); Urine Color Yellow (Yellow)
[2021-05-28 14:10] LABS: Add Urine Microscopic? YES; Bilirubin Urine Neg (Negative); Blood Urine Neg (Negative); Glucose Urine UA Norm (Normal); Ketones Urine 2+ (Negative); Leukocyte Esterase Urine Negative (Negative); Nitrate Urine Negative (Negative); Protein Urine 1+ (Negative); Specific Gravity, Urine 1.005 (1.005-1.030); Urobilinogen Urine Norm (Negative); pH Urine 6.5 (5-7)
[2021-05-28 14:12] LABS: Add Urine Culture? No; Bacteria Urine 1+ /hpf; RBC Urine 0-4 /hpf (0-2); Squamous Epithelial Cell Urine 0-4 /hpf (0-5); WBC Urine 0-4 /hpf (0-5)
[2021-05-28 14:18] LABS: Iron 16 ug/dL (37-145); Percent Saturation 7.3 % (20-50); Total Iron Binding Capacity 219 mcg/dl; Unsaturated Iron Binding 203 ug/dL (112-347)
[2021-05-28] MEDS: vancomycin 1,500 MG/300 ML PIGGYBACK 200 MG IV (14:32)
[2021-05-28] MEDS: benzonatate 100 mg Capsule PO (14:45)
[2021-05-28] MEDS: ipratropium-albuterol 3 mL Neb INHALATION ×2 (15:57→21:13)
--- NOTE | 2021-05-28 16:57 | PC.NURSE ---
PATIENT DISCUSSED WITH NURSE THAT PATIENT NO LONGER WISHES TO BE TRANSFERRED. PROVIDER NOTIFIED. PROVIDER DISCUSSION WAS TO TRY AND RE-EDUCATE PATIENT ON CURRENT OXYGEN SUPPLY AND NEEDS.
--- NOTE | 2021-05-28 17:07 | PC.NURSE ---
PATIENT SATURATION DROPS DUE TO PATIENT'S INABILITY TO STAY SITTING UP IN BED. PATIENT STATES BED HURTS TOO MUCH AND WANTS TO BE LYING OR FLAT. RT NOTIFIED AND WILL COME ASSESS.
[2021-05-28] MEDS: piperacillin-tazobactam 3.375 GM in sodium chloride 0.9% (plus) 50 ML IV (18:00)
[2021-05-28] MEDS: ascorbic acid 500 mg Tablet PO (18:58)
[2021-05-28] MEDS: ferrous gluconate 324 mg Tablet PO (18:59)
[2021-05-28] MEDS: budesonide 0.5 mg/2 mL Neb INHALATION (21:13)
[2021-05-29] VITALS (102 sets, daily range): BP systolic 86–165; BP diastolic 46–118; PULSE 68–115; RESP 17–47; TEMP 36.6–37.1; O2SAT 81–97
[2021-05-29] MEDS: acetaminophen 325 mg Tablet 650 MG PO ×2 (01:15→17:46)
[2021-05-29] MEDS: apixaban 5 mg Tablet PO ×3 (01:15→20:12)
[2021-05-29] MEDS: FUROsemide 10 mg/mL SDV 4mL 40 MG IVP ×2 (01:15→09:43)
[2021-05-29] MEDS: benzonatate 100 mg Capsule PO ×4 (01:15→20:12)
[2021-05-29] MEDS: vancomycin 1,500 MG/300 ML PIGGYBACK 200 MG IV ×2 (01:16→13:04)
[2021-05-29] MEDS: piperacillin-tazobactam 3.375 GM in sodium chloride 0.9% (plus) 50 ML IV ×2 (01:16→07:46)
[2021-05-29] MEDS: famotidine 20 mg/2 mL INJ IVP ×3 (01:16→23:49)
[2021-05-29] MEDS: ipratropium-albuterol 3 mL Neb INHALATION ×6 (02:07→23:08)
[2021-05-29 05:06] LABS: Hematocrit 39.9 % (37.0-47.0); Hemoglobin 13.6 g/dL (11.5-15.3); Lymphocytes # 1.1 10^3/uL (0.8-4.8); Lymphocytes % 18.4 %; Mean Corpuscular HGB Conc 34.1 g/dL (30.0-36.0); Mean Corpuscular Volume 87.9 fl (81-99); Mean Platelet Volume 9.9 fL (7.4-10.4); Monocytes # 0.2 10^3/uL (0.2-0.9); Monocytes % 2.8 %; Neutrophils # 4.71 10^3/uL (1.8-7.7); Nucleated Red Blood Cells % 0 %; Platelet Count 181 10^3/cmm (130-400); Red Blood Count 4.54 10^6/uL (4.1-5.3); Red Cell Distribution Width 12.8 % (12.1-15.1)
--- NOTE | 2021-05-29 06:00 | XRR_ITS ---
PROCEDURE INFORMATION: Exam: XR Chest Exam date and time: 05/29/2021 6:00 AM Age: 31 years old Clinical indication: Shortness of breath; Additional info: Covid TECHNIQUE: Imaging protocol: XR of the chest. Views: 1 view. COMPARISON: CR XR chest 1V portable [id number] 05/28/2021 10:38 AM FINDINGS: Lungs: Bilateral pulmonary infiltrates are present especially in the right base. The right basilar infiltrates have increased when compared to previous study. Pleural spaces: Unremarkable. No pleural effusion. No pneumothorax. Heart/Mediastinum: Unremarkable. No cardiomegaly. Bones/joints: Unremarkable. XR/XR chest 1V portable [id number] IMPRESSION: Worsening pulmonary infiltrates.
[2021-05-29 06:03] LABS: D Dimer 1.65 ug/mIFEU (0-0.59)
[2021-05-29 06:04] LABS: C Reactive Protein 142.8 mg/L (0.0-4.9); Chol HDL Ratio 2.48 mg/dL (0.0-4.40); Cholesterol 77 mg/dL (0-200); HDL Cholesterol 31 mg/dL (60-100); LDL Cholesterol Calculated 29 mg/dL (50-129); Triglycerides 85 mg/dL (0-150); VLDL Cholestrol Calculation 17 mg/dL (0-30)
[2021-05-29 06:11] LABS: Alanine Aminotransferase 190 U/L (0-33); Albumin Level 3.4 g/dL (3.5-5.2); Alkaline Phosphatase 67 IU/L (35-105); Aspartate Amino Transferase 151 U/L (0-32); Blood Urea Nitrogen 8 mg/dL (6-20); Calcium 7.4 mg/dL (8.5-10.5); Carbon Dioxide 19 mmol/L (22-29); Chloride 100 mmol/L (98-107); Globulin 3.1 g/dL (1.3-4.6); Glomerular Filtration Rate 84.2 mL/min (90-130); Glucose 95 mg/dL (65-115); Magnesium 1.8 mg/dL (1.7-2.3); Osmolality Calculated 284 mOsm/kg (285-295); Phosphorus 3.3 mg/dL (2.5-4.5); Sodium 138 mmol/L (136-145); Total Bilirubin 0.3 mg/dL (0.15-1.2); Total Protein 6.5 g/dL (6.6-8.7)
[2021-05-29 06:24] LABS: Estmated Average Glucose 100; Hemoglobin A1C 5.1 % (4.0-6.0)
[2021-05-29 06:56] LABS: Procalcitonin > 100.00 ng/mL (0-0.5)
--- NOTE | 2021-05-29 07:25 | PC.NURSE ---
Report received, assessment completed. VSS. Pt AAOX3. C/O water from HHFNC tubing getting into nose, tubing adjusted and emptied of water. 55L, 80% at this time. Lung sounds CTA. Hastings cath draining clear ted urine to BSD. Pt sitting upright in bed. Will encourage to be up in chair today. Will monitor.
[2021-05-29] MEDS: zinc gluconate 50 mg Tablet PO (07:46)
[2021-05-29] MEDS: ferrous gluconate 324 mg Tablet PO ×2 (07:46→17:45)
[2021-05-29] MEDS: ascorbic acid 500 mg Tablet PO ×2 (07:46→17:45)
[2021-05-29] MEDS: budesonide 0.5 mg/2 mL Neb INHALATION ×2 (08:12→19:51)
[2021-05-29] MEDS: potassium chloride ER 20 mEq Tablet 40 MEQ PO ×2 (09:43→10:22)
[2021-05-29] MEDS: guaiFENesin-codeine UDC 10 mL 5 ML PO ×2 (09:46→18:32)
[2021-05-29] MEDS: ondansetron 2 mg/ML SDV 2 mL 4 MG IVP (10:52)
[2021-05-29] MEDS: dexamethasone 4 mg/mL INJ 6 MG IVP (11:27)
--- NOTE | 2021-05-29 11:48 | PM.PN ---
Subjective Subjective: Interval history: No acute events overnight. Overnight patient was transitioned to ICU after she got a bed finally. Currently on examination she is sitting up in chair. Mood is better than yesterday. Working with I-S and Acapella today. Currently on 40 L 80% FiO2 saturating 92%. Looking mildly tachypneic on conversation. States feeling better than yesterday. Vitals/I&O/Wt Last Vital Signs Temp 98.0 F 05/29/21 08:00 Pulse 90 05/29/21 11:26 Resp 24 H 05/29/21 11:26 BP 116/72 05/29/21 08:00 Pulse Ox 94 05/29/21 11:26 05/28/21 05/29/21 05/29/21 22:59 06:59 14:59 Intake Total 350 / 1410 716.25 / 716.25 Output Total 3100 / 3100 Balance 350 / 1410 -3100 / -1690 716.25 / 716.25 Weight last 48 hrs Weight 149.685 kg Physical Exam Narrative: EXAM NARRATIVE: General: No acute distress, AO x3, gets tachypneic on conversation, on heated high flow HEENT: PERRLA, pupils bilaterally equal and reactive Chest: Normal vesicular breath sounds, bilateral coarse crackles present, equal limited air entry bilaterally CVS: S1-S2 regular, no murmurs, no tachycardia, no gallops, no rubs Abdomen: Soft, nontender, no organomegaly, bowel sounds present Neuro: No focal deficits, no facial deformity, AO x3, power 5/5 in all limbs Urinary Catheter Management^: Hastings: Cath Placed During This Visit: yes Reason for Continuing Indwelling Catheter: Accurate Measurement of Urinary Output in Critically Ill Patients Urinary Catheter Date of Insertion: 05/28/21 Urinary Catheter Time of Insertion: 13:35 Data : 05/29/21 04:06 05/29/21 04:06 Micro: Microbiology 05/28/21 13:35 MRSA Culture - Final Nose 05/28/21 13:35 Gram Stain - Final Sputum - Expectorated Sputum 05/28/21 13:35 Bacterial Antigens - Final Urine Kidney 05/28/21 13:35 Legionella Urinary Antigen - Final Urine Catheterized 05/28/21 14:46 Blood Culture - Preliminary Blood SPECIMEN COLLECTED 05/28/21 13:08 Blood Culture - Preliminary Blood SPECIMEN COLLECTED A&P Assessment and plan (1) Acute respiratory failure due to COVID-19: Status: Acute (2) COVID-19: Status: Acute (3) Bacterial pneumonia: Status: Acute Additional A&P Information Hypoxic respiratory failure secondary to COVID-19 pneumonia: Severe disease Oxygen supplementation keeping saturation over 88%. Dexamethasone 6 mg daily. Remdesivir to finish a 5-day course. Vitamin C, zinc. DuoNebs every 6 hour, budesonide twice daily Pulmonary toilet with incentive spirometry flutter valve. We will monitor inflammatory markers including D-dimer, CRP every 48 hours. Patient is a high suspicion of bacterial pneumonia given extremely high procalcitonin. Will avoid Actemra. D-dimer elevated. CTA negative for pulmonary embolism. For now we will continue on full dose anticoagulation given morbid obesity and high oxygen requirement. Will monitor for anemia or blood loss. Procalcitonin more than 100, urine Legionella bacterial antigen negative, blood cultures so far negative, MRSA swab negative, sputum culture final results pending. High suspicion of superadded bacterial pneumonia Stop vancomycin. Switch from Zosyn to imipenem. Levaquin to finish a 5-day course. Given hypoxia will try to keep patient as negative as possible. IV Lasix 20 mg stat. Plan for net -1 L in next 24 hours Strict input output charting, daily weights. Morbid obesity. Cannot rule out underlying obstructive sleep apnea. Full code. Cheikh will have a DVT prophylaxis. Famotidine for PUD prophylaxis. Mechanical soft diet. Patient's care discussed in detail with patient and her significant other Mr. Grande all over the phone. Guarded prognosis given ARDS, morbid obesity. Attestations Medical Necessity Statement*: Requires further hospitalization for management of hypoxic respiratory failure secondary COVID-19 pneumonia with high suspicion of superadded bacterial pneumonia Critical Care Time: The high probability of a clinically significant, sudden or life threatening deterioration of the patient's [respiratory] system(s) required my full and direct attention, intervention and personal management. The critical care time is as shown. 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
[2021-05-29] MEDS: remdesivir 100 MG in sodium chloride 0.9% (100 ml) 80 ML IV (17:46)
--- NOTE | 2021-05-29 18:19 | PC.NURSE ---
Shift Note Frequent safety and comfort rounds continue. Orders and/or nursing care completed as indicated. Patient monitored for response to intervention and treatment(s). Education provided includes treatment plan, medications, IS and flutter valve use, and oxygen weaning. Pt verbalizes understanding. No other issues noted. Pt prefers to be up in chair d/t ease of breathing. Will continue to monitor.
--- NOTE | 2021-05-29 19:10 | PC.NURSE ---
Up to chair Upon shift assessment, patient sitting in chair. All vitals stable. Acapella and IS on bedside table. Patient states does not want to wear SCDs tonight. Education provided on benefits of laying prone, using IS/acapella, and SCDs. Patient verbalized understanding.
--- NOTE | 2021-05-29 21:30 | PC.NURSE ---
Hygiene Patient received full bed bath, linen change, gown change, and hair was shampooed/brushed. Patient transferred from chair to bed with a decrease in oxygen saturation to 87%. Once settled in bed, oxygen saturation increased and maintained in the low 90s. Patient tolerated activity well, all other vitals stable.
[2021-05-30] VITALS (58 sets, daily range): BP systolic 99–143; BP diastolic 61–90; PULSE 56–101; RESP 18–50; TEMP 36.6–37.1; O2SAT 87–98; BMI 52.9
[2021-05-30] MEDS: guaiFENesin-codeine UDC 10 mL 5 ML PO ×2 (01:34→08:04)
[2021-05-30] MEDS: vancomycin 1,500 MG/300 ML PIGGYBACK 200 MG IV ×2 (01:34→10:14)
[2021-05-30 01:35] LABS: Vancomycin Trough 6.7 ug/mL (10-15)
[2021-05-30] MEDS: ipratropium-albuterol 3 mL Neb INHALATION ×5 (03:35→20:00)
--- NOTE | 2021-05-30 03:45 | PC.NURSE ---
Anxiety Patient states having severe anxiety over blood draws and treatment. Patient refused blood draws/ABGs, RR in the 30s, arms moving in an anxious manner. All other vitals stable. Dr. Rodriguez notified; order received for PO 0.5 mg Xanax TID PRN for anxiety. Medication administered per JUL. Patient allowed blood draws following.
[2021-05-30] MEDS: ALPRAZolam 0.5 mg Tablet PO (04:16)
[2021-05-30 06:52] LABS: Hematocrit 40.3 % (37.0-47.0); Hemoglobin 13.6 g/dL (11.5-15.3); Lymphocytes # 0.8 10^3/uL (0.8-4.8); Lymphocytes % 17.6 %; Mean Corpuscular HGB Conc 33.7 g/dL (30.0-36.0); Mean Corpuscular Hemoglobin 29.8 pg (28.0-34.0); Mean Corpuscular Volume 88.2 fl (81-99); Mean Platelet Volume 9.7 fL (7.4-10.4); Monocytes # 0.3 10^3/uL (0.2-0.9); Monocytes % 6.5 %; Neutrophils % 74.5 %; Nucleated Red Blood Cells % 0 %; Platelet Count 221 10^3/cmm (130-400); Red Blood Count 4.57 10^6/uL (4.1-5.3); Red Cell Distribution Width 12.9 % (12.1-15.1); White Blood Count 4.4 10^3/uL (4.0-10.0)
[2021-05-30 07:13] LABS: Alanine Aminotransferase 134 U/L (0-33); Albumin Level 3.6 g/dL (3.5-5.2); Alkaline Phosphatase 59 IU/L (35-105); Anion Gap 16.8 (5-19); Aspartate Amino Transferase 67 U/L (0-32); Blood Urea Nitrogen 9 mg/dL (6-20); Calcium 7.9 mg/dL (8.5-10.5); Carbon Dioxide 24 mmol/L (22-29); Chloride 105 mmol/L (98-107); Globulin 2.9 g/dL (1.3-4.6); Glomerular Filtration Rate 117.4 mL/min (90-130); Glucose 127 mg/dL (65-115); Osmolality Calculated 294 mOsm/kg (285-295); Potassium 3.8 mmol/L (3.5-5.1); Sodium 142 mmol/L (136-145); Total Bilirubin 0.3 mg/dL (0.15-1.2); Total Protein 6.5 g/dL (6.6-8.7)
[2021-05-30 07:23] LABS: Procalcitonin 43.17 ng/mL (0-0.5)
[2021-05-30 07:49] LABS: Slide Review Slide Review Perform
[2021-05-30] MEDS: budesonide 0.5 mg/2 mL Neb INHALATION ×2 (08:02→20:00)
[2021-05-30] MEDS: benzonatate 100 mg Capsule PO ×3 (08:04→20:42)
[2021-05-30] MEDS: zinc gluconate 50 mg Tablet PO (08:04)
[2021-05-30] MEDS: apixaban 5 mg Tablet PO ×2 (08:04→20:42)
[2021-05-30] MEDS: ascorbic acid 500 mg Tablet PO ×2 (08:04→17:12)
[2021-05-30] MEDS: ferrous gluconate 324 mg Tablet PO ×2 (08:04→17:12)
[2021-05-30 09:31] LABS: C Reactive Protein 44.2 mg/L (0.0-4.9)
[2021-05-30 09:43] LABS: D Dimer 0.56 ug/mIFEU (0-0.59)
[2021-05-30] MEDS: FUROsemide 10 mg/mL SDV 2mL 20 MG IVP (10:00)
[2021-05-30] MEDS: acetaminophen 325 mg Tablet 650 MG PO (10:09)
[2021-05-30] MEDS: ondansetron 2 mg/ML SDV 2 mL 4 MG IVP (10:09)
[2021-05-30] MEDS: dexamethasone 4 mg/mL INJ 6 MG IVP (11:33)
[2021-05-30] MEDS: famotidine 20 mg/2 mL INJ IVP ×2 (11:33→23:17)
--- NOTE | 2021-05-30 12:36 | P.PN_ITS ---
Subjective Subjective: Interval history: No acute events overnight. Patient remains hemodynamically stable afebrile. Today morning on examination sitting up in chair. Continues to remain on 50 L but down to 70% from 75% saturating more than 92%. Refused ABG in morning because of phobia to needles. Vitals/I&O/Wt Last Vital Signs Temp 98.8 F 05/30/21 08:00 Pulse 82 05/30/21 12:00 Resp 26 H 05/30/21 12:00 BP 140/72 05/30/21 12:00 Pulse Ox 93 05/30/21 12:00 05/29/21 05/30/21 05/30/21 22:59 06:59 14:59 Intake Total 540 / 1796.25 500 / 2296.25 640 / 640 Output Total 850 / 2350 Balance 540 / 296.25 -350 / -53.75 640 / 640 Weight last 48 hrs Weight 157.85 kg Physical Exam Narrative: EXAM NARRATIVE: General: No acute distress, AO x3, slightly better but still gets tachypneic on conversation, on heated high flow HEENT: PERRLA, pupils bilaterally equal and reactive Chest: Normal vesicular breath sounds, bilateral coarse crackles present, equal limited air entry bilaterally CVS: S1-S2 regular, no murmurs, no tachycardia, no gallops, no rubs Abdomen: Soft, nontender, no organomegaly, bowel sounds present Neuro: No focal deficits, no facial deformity, AO x3, power 5/5 in all limbs Urinary Catheter Management^: Hastings: Cath Placed During This Visit: yes Reason for Continuing Indwelling Catheter: Accurate Measurement of Urinary Output in Critically Ill Patients Urinary Catheter Date of Insertion: 05/28/21 Urinary Catheter Time of Insertion: 13:35 Data : 05/30/21 06:28 05/30/21 06:28 Micro: Microbiology 05/28/21 13:35 Gram Stain - Final Sputum - Expectorated Sputum Sputum Culture - Preliminary 05/28/21 13:08 Blood Culture - Preliminary Blood Coagulase negativ staphylococc 05/29/21 17:36 Blood Culture - Preliminary Blood SPECIMEN COLLECTED 05/29/21 17:37 Blood Culture - Preliminary Blood SPECIMEN COLLECTED 05/28/21 14:46 Blood Culture - Preliminary Blood NEGATIVE TO DATE 05/28/21 13:35 MRSA Culture - Final Nose 12/29/21 13:35 Bacterial Antigens - Final Urine Kidney A&P Assessment and plan (1) Acute respiratory failure due to COVID-19: Status: Acute (2) COVID-19: Status: Acute (3) Bacterial pneumonia: Status: Acute Additional A&P Information Hypoxic respiratory failure secondary to COVID-19 pneumonia: Severe disease Oxygen supplementation keeping saturation over 88%. Dexamethasone 6 mg daily. Remdesivir to finish a 5-day course. Vitamin C, zinc. DuoNebs every 6 hour, budesonide twice daily Pulmonary toilet with incentive spirometry flutter valve. We will monitor inflammatory markers including D-dimer, CRP every 48 hours. Patient is a high suspicion of bacterial pneumonia given extremely high procalcitonin. Will avoid Actemra. D-dimer trending down to normal. CTA negative for pulmonary embolism. For now we will continue on full dose anticoagulation given morbid obesity and high oxygen requirement. Will monitor for anemia or blood loss. Procalcitonin trending down, urine Legionella bacterial antigen negative, blood cultures so far negative, MRSA swab negative, sputum culture final results pending. High suspicion of superadded bacterial pneumonia Continue with imipenem, Levaquin. Levaquin to finish a 5-day course. Given hypoxia will try to keep patient as negative as possible. Repeat IV Lasix 20 mg stat. Plan for net -1 L in next 24 hours Strict input output charting, daily weights. Morbid obesity. Cannot rule out underlying obstructive sleep apnea. Full code. Cheikh will have a DVT prophylaxis. Famotidine for PUD prophylaxis. Mechanical soft diet. Patient's care discussed in detail with patient and her significant other Mr. Grande all over the phone. Guarded prognosis given ARDS, morbid obesity. Attestations Medical Necessity Statement*: Requires further hospitalization for management of hypoxic respiratory failure secondary COVID-19 pneumonia, superadded bacterial pneumonia Time Spent in Patient Care: Greater than 35 minutes (>than 50% of time spent in counselling and/or direct pt care on unit) . Coding Level of Care Code Acute Keg Header for [facility] Diagnoses Acute respiratory failure due to COVID-19 U07.1; J96.00 COVID-19 U07.1 Bacterial pneumonia J15.9
[2021-05-30] MEDS: levoFLOXacin 500 mg Tablet PO (13:33)
[2021-05-30] MEDS: remdesivir 100 MG in sodium chloride 0.9% (100 ml) 80 ML IV (17:50)
--- NOTE | 2021-05-30 18:04 | PC.NURSE ---
Shift Note Frequent safety and comfort rounds continue. Orders and/or nursing care completed as indicated. Patient monitored for response to intervention and treatment(s). Education provided includes treatment plan, medications and oxygen safety. Pt verbalizes understanding, makes all needs known. Denies any needs at this time. Appetite has improved some today and pt has been using IS and flutter valve every hour as directed. Will continue to monitor.
--- NOTE | 2021-05-30 22:20 | PC.NURSE ---
Back to Bed Patient transferred from chair to bed with no decrease in oxygen saturation. All vitals stable. No further needs stated at this time.
[2021-05-31] VITALS (57 sets, daily range): BP systolic 98–142; BP diastolic 62–88; PULSE 61–93; RESP 16–40; TEMP 36.7–37; O2SAT 91–99; BMI 53.1
[2021-05-31] MEDS: ipratropium-albuterol 3 mL Neb INHALATION ×7 (00:04→23:05)
[2021-05-31 04:00] LABS: Basophils % 0.2 %; Hematocrit 40.2 % (37.0-47.0); Hemoglobin 13.6 g/dL (11.5-15.3); Lymphocytes % 17.9 %; Mean Corpuscular HGB Conc 33.8 g/dL (30.0-36.0); Mean Corpuscular Hemoglobin 29.8 pg (28.0-34.0); Mean Platelet Volume 9.8 fL (7.4-10.4); Monocytes # 0.4 10^3/uL (0.2-0.9); Monocytes % 7.7 %; Neutrophils # 3.93 10^3/uL (1.8-7.7); Neutrophils % 71.6 %; Nucleated Red Blood Cells % 0 %; Platelet Count 267 10^3/cmm (130-400); Red Blood Count 4.57 10^6/uL (4.1-5.3); Red Cell Distribution Width 12.8 % (12.1-15.1); White Blood Count 5.5 10^3/uL (4.0-10.0)
[2021-05-31 04:24] LABS: Alanine Aminotransferase 200 U/L (0-33); Albumin Level 3.6 g/dL (3.5-5.2); Alkaline Phosphatase 64 IU/L (35-105); Anion Gap 17.7 (5-19); Aspartate Amino Transferase 151 U/L (0-32); Blood Urea Nitrogen 13 mg/dL (6-20); C Reactive Protein 17.1 mg/L (0.0-4.9); Calcium 8.2 mg/dL (8.5-10.5); Carbon Dioxide 23 mmol/L (22-29); Chloride 103 mmol/L (98-107); Globulin 3.1 g/dL (1.3-4.6); Glomerular Filtration Rate 144.9 mL/min (90-130); Glucose 140 mg/dL (65-115); Osmolality Calculated 292 mOsm/kg (285-295); Potassium 3.7 mmol/L (3.5-5.1); Sodium 140 mmol/L (136-145); Total Bilirubin 0.4 mg/dL (0.15-1.2); Total Protein 6.7 g/dL (6.6-8.7)
[2021-05-31] MEDS: levoFLOXacin 500 mg Tablet PO (05:26)
[2021-05-31 05:41] LABS: Slide Review Slide Review Perform
--- NOTE | 2021-05-31 06:00 | XRR_ITS ---
PROCEDURE INFORMATION: Exam: XR Chest Exam date and time: 05/31/2021 6:00 AM Age: 31 years old Clinical indication: Shortness of breath; Patient HX: F/u for covid pneumonia. On high flow 02 cannula. TECHNIQUE: Imaging protocol: XR of the chest. Views: 1 view. COMPARISON: CR (CHEST, ) 05/29/2021 4:46 AM FINDINGS: Lungs: Overall slight decreased pulmonary opacities with at least moderate residual bilateral pneumonia. Pleural spaces: Unremarkable. No pleural effusion. No pneumothorax. Heart/Mediastinum: Unremarkable. No cardiomegaly. Bones/joints: Unremarkable. XR/XR chest 1V portable [id number] IMPRESSION: Overall slight decreased pulmonary opacities with at least moderate residual bilateral pneumonia.
--- NOTE | 2021-05-31 07:07 | PC.NURSE ---
Shift Note Frequent safety and comfort rounds continue. Orders and/or nursing care completed as indicated. Patient monitored for response to intervention and treatment(s). OVerall uneventful shift: patient rested throughout night. Patient experienced some anxiety regarding lab draws but did not wish to take PO medication. Education provided on times and purpose of lab draws; understanding verbalized. Anxiety resolved with resting, all vitals stable. Oxygen requirements remain at 70% FIO2, 45 L on heated high flow. Will continue to monitor.
[2021-05-31] MEDS: zinc gluconate 50 mg Tablet PO (07:55)
[2021-05-31] MEDS: benzonatate 100 mg Capsule PO ×3 (07:55→21:43)
[2021-05-31] MEDS: ferrous gluconate 324 mg Tablet PO ×2 (07:55→17:09)
[2021-05-31] MEDS: ascorbic acid 500 mg Tablet PO ×2 (07:55→17:09)
[2021-05-31] MEDS: apixaban 5 mg Tablet PO ×2 (07:56→21:43)
[2021-05-31] MEDS: budesonide 0.5 mg/2 mL Neb INHALATION ×2 (08:05→19:26)
[2021-05-31] MEDS: famotidine 20 mg/2 mL INJ IVP ×2 (11:32→23:52)
[2021-05-31] MEDS: dexamethasone 4 mg/mL INJ 6 MG IVP (11:32)
--- NOTE | 2021-05-31 12:42 | P.PN_ITS ---
Subjective Subjective: Interval history: No acute events overnight. Denies any nausea, vomiting, headache. Again today morning on examination sitting up in chair. Working with I-S and Acapella. Feeling very tired today. Encouraged by the fact that oxygen supplementation is coming down. Been brought down to 50 L 65% saturating 96%. Able to come down further on FiO2 today. Vitals/I&O/Wt Last Vital Signs Temp 98.1 F 05/31/21 10:00 Pulse 86 05/31/21 12:00 Resp 19 H 05/31/21 12:00 BP 122/74 05/31/21 12:00 Pulse Ox 97 05/31/21 12:00 05/30/21 05/31/21 05/31/21 22:59 06:59 14:59 Intake Total 940 / 1940 580 / 2520 700 / 700 Output Total 1125 / 1125 625 / 1750 Balance -185 / 815 -45 / 770 700 / 700 Weight last 48 hrs Weight 158.757 kg Weight 157.85 kg Physical Exam Narrative: EXAM NARRATIVE: General: No acute distress, AO x3, slightly better but still gets tachypneic on conversation, on heated high flow HEENT: PERRLA, pupils bilaterally equal and reactive Chest: Normal vesicular breath sounds, bilateral coarse crackles present, equal limited air entry bilaterally CVS: S1-S2 regular, no murmurs, no tachycardia, no gallops, no rubs Abdomen: Soft, nontender, no organomegaly, bowel sounds present Neuro: No focal deficits, no facial deformity, AO x3, power 5/5 in all limbs Urinary Catheter Management^: Hastings: Cath Placed During This Visit: yes Reason for Continuing Indwelling Catheter: Accurate Measurement of Urinary Output in Critically Ill Patients Urinary Catheter Date of Insertion: 05/28/21 Urinary Catheter Time of Insertion: 13:35 Data : 05/31/21 03:10 05/31/21 03:10 Micro: Microbiology 05/28/21 13:35 Gram Stain - Final Sputum - Expectorated Sputum Sputum Culture - Preliminary 05/29/21 17:37 Blood Culture - Preliminary Blood NEGATIVE TO DATE 05/29/21 17:36 Blood Culture - Preliminary Blood NEGATIVE TO DATE 05/28/21 13:08 Blood Culture - Preliminary Blood Coagulase negativ staphylococc A&P Assessment and plan (1) Acute respiratory failure due to COVID-19: Status: Acute (2) COVID-19: Status: Acute (3) Bacterial pneumonia: Status: Acute Additional A&P Information Hypoxic respiratory failure secondary to COVID-19 pneumonia: Severe disease Oxygen supplementation keeping saturation over 88%. Dexamethasone 6 mg daily. Remdesivir to finish a 5-day course. Last dose on June 01. Vitamin C, zinc. DuoNebs every 6 hour, budesonide twice daily Pulmonary toilet with incentive spirometry flutter valve. We will monitor inflammatory markers including D-dimer, CRP every 48 hours. Patient is a high suspicion of bacterial pneumonia given extremely high procalcitonin. Will avoid Actemra. D-dimer trending down. CTA negative for pulmonary embolism. For now we will continue on full dose anticoagulation given morbid obesity and high oxygen requirement. Will monitor for anemia or blood loss. Procalcitonin trending down, urine Legionella bacterial antigen negative, blood cultures so far negative, MRSA swab negative, sputum culture final results pending. High suspicion of superadded bacterial pneumonia Continue with imipenem, Levaquin. Imipenem to finish a 7-day course. Last dose June 05. Levaquin to finish a 5-day course. Last dose June 04. Blood culture from day of admission 1 out of 3 bottles positive for gram- positive cocci. Most likely contaminant. But given elevated procalcitonin and high oxygen requirements on admission for now we will continue with IV antibiotics. Repeat blood cultures so far negative. We will continue to monitor. Given hypoxia will try to keep patient as negative as possible. Repeat IV Lasix 20 mg stat. Plan for net -1 L in next 24 hours Strict input output charting, daily weights. Morbid obesity. Cannot rule out underlying obstructive sleep apnea. Full code. Cheikh will have a DVT prophylaxis. Famotidine for PUD prophylaxis. Mechanical soft diet. Plan for day: Continue with remdesivir, aggressive I-S and Acapella. Continue weaning oxygen or keeping saturation around 90%. Continue with IV antibiotics. Attestations Medical Necessity Statement*: Requires further hospitalization for management of hypoxic respiratory failure secondary to COVID-19 pneumonia and superadded bacterial pneumonia Time Spent in Patient Care: Greater than 35 minutes (>than 50% of time spent in counselling and/or direct pt care on unit) . Coding Level of Care Code Acute Document Control Supervisor for [facility] Fwd Diagnoses Acute respiratory failure due to COVID-19 U07.1; J96.00 COVID-19 U07.1 Bacterial pneumonia J15.9
[2021-05-31] MEDS: remdesivir 100 MG in sodium chloride 0.9% (100 ml) 80 ML IV (17:09)
--- NOTE | 2021-05-31 20:12 | PC.NURSE ---
Oxygen Patient's oxygen saturation in the mid-high 90s, RT switched heated high flow machine for high flow nasal cannula at 10 L. Patient remains to have saturation in the low-mid 90s. All other vitals stable.
[2021-06-01] VITALS (28 sets, daily range): BP systolic 103–147; BP diastolic 66–89; PULSE 58–102; RESP 16–38; TEMP 36.5–36.9; O2SAT 87–95; BMI 52.9
[2021-06-01] MEDS: ipratropium-albuterol 3 mL Neb INHALATION ×4 (03:01→20:27)
[2021-06-01] MEDS: levoFLOXacin 500 mg Tablet PO (05:59)
--- NOTE | 2021-06-01 07:42 | PC.NURSE ---
Shift Note Frequent safety and comfort rounds continue. Orders and/or nursing care completed as indicated. Patient monitored for response to intervention and treatment(s). OVerall uneventful shift. Patient's oxygen requirements titrated down from HHF 45 % Fio2 to 10 L HF NC. Patient able to transfer from bed to bedside commode and back again with barely any decrease in oxygen saturation. All vitals remained stable. Will continue to monitor.
[2021-06-01] MEDS: budesonide 0.5 mg/2 mL Neb INHALATION ×2 (08:03→20:27)
[2021-06-01] MEDS: FUROsemide 10 mg/mL SDV 2mL 20 MG IVP (08:49)
[2021-06-01] MEDS: benzonatate 100 mg Capsule PO ×3 (08:49→21:10)
[2021-06-01] MEDS: zinc gluconate 50 mg Tablet PO (08:49)
[2021-06-01] MEDS: apixaban 5 mg Tablet PO ×2 (08:49→21:10)
[2021-06-01] MEDS: ascorbic acid 500 mg Tablet PO ×2 (08:49→17:22)
[2021-06-01] MEDS: ferrous gluconate 324 mg Tablet PO ×2 (08:49→17:22)
[2021-06-01] MEDS: ondansetron 2 mg/ML SDV 2 mL 4 MG IVP (10:51)
--- NOTE | 2021-06-01 11:44 | PM.PN ---
Subjective Subjective: Interval history: No acute events overnight. Today morning examination patient still sitting in chair. Denies any nausea vomiting, headache. Complaining of mild dizziness. Hemodynamically stable. Turned down to 8 L high flow nasal cannula saturating 92%. Appetite appropriate. Vitals/I&O/Wt Last Vital Signs Temp 98.1 F 06/01/21 09:00 Pulse 81 06/01/21 09:00 Resp 33 H 06/01/21 09:00 BP 126/86 06/01/21 09:00 Pulse Ox 95 06/01/21 09:00 05/31/21 06/01/21 06/01/21 22:59 06:59 14:59 Intake Total 760 / 1460 100 / 1560 120 / 120 Output Total 525 / 525 525 / 1050 1150 / 1150 Balance 235 / 935 -425 / 510 -1030 / -1030 Weight last 48 hrs Weight 158.032 kg Weight 158.757 kg Physical Exam Narrative: EXAM NARRATIVE: General: No acute distress, AO x3, slightly better but still gets tachypneic on conversation, high flow nasal cannula HEENT: PERRLA, pupils bilaterally equal and reactive Chest: Normal vesicular breath sounds, bilateral coarse crackles present, equal limited air entry bilaterally CVS: S1-S2 regular, no murmurs, no tachycardia, no gallops, no rubs Abdomen: Soft, nontender, no organomegaly, bowel sounds present Neuro: No focal deficits, no facial deformity, AO x3, power 5/5 in all limbs Urinary Catheter Management^: Hastings: Cath Placed During This Visit: yes Reason for Continuing Indwelling Catheter: Accurate Measurement of Urinary Output in Critically Ill Patients Urinary Catheter Date of Insertion: 05/28/21 Urinary Catheter Time of Insertion: 13:35 Data : 05/31/21 03:10 05/31/21 03:10 Micro: Microbiology 05/28/21 13:35 Gram Stain - Final Sputum - Expectorated Sputum Sputum Culture - Final Haemophilus parahaemolyticus A&P Assessment and plan (1) Acute respiratory failure due to COVID-19: Status: Acute (2) COVID-19: Status: Acute (3) Bacterial pneumonia: Status: Acute Additional A&P Information Hypoxic respiratory failure secondary to COVID-19 pneumonia: Severe disease Oxygen supplementation keeping saturation over 88%. Dexamethasone 6 mg daily. Remdesivir to finish a 5-day course. Last dose on June 01. Vitamin C, zinc. DuoNebs every 6 hour, budesonide twice daily Pulmonary toilet with incentive spirometry flutter valve. We will monitor inflammatory markers including D-dimer, CRP every 48 hours. Patient is a high suspicion of bacterial pneumonia given extremely high procalcitonin. Will avoid Actemra. D-dimer trending down. CTA negative for pulmonary embolism. For now we will continue on full dose anticoagulation given morbid obesity and high oxygen requirement. Will monitor for anemia or blood loss. Procalcitonin trending down, urine Legionella bacterial antigen negative, blood cultures so far negative, MRSA swab negative, sputum culture growing Hemophilus parahemolyticus. Continue with imipenem, Levaquin. Imipenem to finish a 7-day course. Last dose June 05. Levaquin to finish a 7-day course. Last dose June 06. Blood culture from day of admission 1 out of 3 bottles positive for gram-positive cocci. Most likely contaminant. But given elevated procalcitonin and high oxygen requirements on admission for now we will continue with IV antibiotics. Repeat blood cultures so far negative. We will continue to monitor. Given hypoxia will try to keep patient as negative as possible. Repeat IV Lasix 20 mg stat. Plan for net -1 L in next 24 hours Strict input output charting, daily weights. Morbid obesity. Cannot rule out underlying obstructive sleep apnea. Full code. Cheikh will have a DVT prophylaxis. Famotidine for PUD prophylaxis. Mechanical soft diet. Plan for day: Continue to wean O2 keeping saturation over 90%. C/w Remdesevir and dexamethsone. Antibiotics with imipenem and levoflox. Aggressive IS and acapella. Meclizine as needed for dizziness. Transfer to med/surg. Attestations Medical Necessity Statement*: Hypoxic resp failure 2/2 covid pna and superadded bacterial pna Time Spent in Patient Care: Greater than 35 minutes (>than 50% of time spent in counselling and/or direct pt care on unit). Coding Level of Care Code Acute Telephone Cleaner for [facility] Diagnoses Acute respiratory failure due to COVID-19 U07.1; J96.00 COVID-19 U07.1 Bacterial pneumonia J15.9
[2021-06-01] MEDS: dexamethasone 4 mg/mL INJ 6 MG IVP (11:48)
[2021-06-01] MEDS: famotidine 20 mg/2 mL INJ IVP (11:51)
--- NOTE | 2021-06-01 13:35 | PC.NURSE ---
[facility] All belongings sent with patient. Handed off to nurse bhaskar. ICU nurse informed bhaskar of fluid restriction and noted on their information board that as of the time of this note there has been 420mL intake and 1150 output.
[2021-06-01] MEDS: ALPRAZolam 0.5 mg Tablet PO (14:57)
[2021-06-01] MEDS: remdesivir 100 MG in sodium chloride 0.9% (100 ml) 80 ML IV (17:22)
[2021-06-02] VITALS (15 sets, daily range): BP systolic 100–136; BP diastolic 66–80; PULSE 76–101; RESP 16–20; TEMP 36.9–37.2; O2SAT 90–96
[2021-06-02] MEDS: ipratropium-albuterol 3 mL Neb INHALATION ×6 (00:05→23:42)
[2021-06-02] MEDS: famotidine 20 mg/2 mL INJ IVP (00:09)
[2021-06-02] MEDS: levoFLOXacin 500 mg Tablet PO (05:43)
--- NOTE | 2021-06-02 06:00 | XRR_ITS ---
PROCEDURE INFORMATION: Exam: XR Chest Exam date and time: 06/02/2021 6:00 AM Age: 31 years old Clinical indication: Shortness of breath; Patient HX: F/u for covid pneumonia. TECHNIQUE: Imaging protocol: XR of the chest. Views: 1 view. COMPARISON: CR (CHEST, ) 05/31/2021 6:03 AM FINDINGS: Lungs: Stable to mild interval increase in bilateral infiltrates. Pleural spaces: Unremarkable. No pleural effusion. No pneumothorax. Heart/Mediastinum: Unremarkable. No cardiomegaly. Bones/joints: Unremarkable. XR/XR chest 1V portable [id number] IMPRESSION: Stable to mild interval increase in bilateral infiltrates.
[2021-06-02] MEDS: zinc gluconate 50 mg Tablet PO (07:33)
[2021-06-02] MEDS: apixaban 5 mg Tablet PO ×2 (07:34→20:38)
[2021-06-02] MEDS: ascorbic acid 500 mg Tablet PO ×2 (07:34→16:41)
[2021-06-02] MEDS: benzonatate 100 mg Capsule PO ×3 (07:34→20:38)
[2021-06-02] MEDS: ferrous gluconate 324 mg Tablet PO ×2 (07:34→16:41)
[2021-06-02] MEDS: budesonide 0.5 mg/2 mL Neb INHALATION ×2 (09:03→20:10)
--- NOTE | 2021-06-02 11:37 | PC.NURSE ---
Dr. Luis notified about patients IV infiltrating and refusing to have another one placed. Education provided to the patient of the importance of IV antibiotics and steroids.
--- NOTE | 2021-06-02 19:20 | PM.PN ---
Vitals/I&O/Wt Last Vital Signs Temp 98.9 F 06/02/21 15:54 Pulse 98 06/02/21 16:41 Resp 16 06/02/21 16:41 BP 100/66 06/02/21 15:54 Pulse Ox 95 06/02/21 16:41 06/02/21 06/02/21 06/02/21 06:59 14:59 22:59 Intake Total 1300 / 2360 820 / 820 Output Total 120 / 2420 450 / 450 200 / 650 Balance 1180 / -60 370 / 370 -200 / 170 Weight last 48 hrs Weight 171.639 kg Weight 158.032 kg Physical Exam Const: COMMON NORMALS: no acute distress, patient oriented x3 and alert NUTRITIONAL APPEARANCE: obese ORIENTATION/CONSCIOUSNESS: Yes awake HENMT: COMMON NORMALS: oropharynx normal Neck/C-Spine: COMMON NORMALS: no JVD Resp: COMMON NORMALS: normal respiratory effort and clear to auscultation bilaterally AUSCULTATION: clear to auscultation bilaterally Cardio: COMMON NORMALS: no JVD Extremity: COMMON NORMALS: no joint enlargement and no pedal edema Neuro: COMMON NORMALS: patient oriented x3 and moves all extremities SENSORIUM/ORIENTATION: Yes alert Skin: COMMON NORMALS: no rashes or lesions noted GENERAL SKIN EXAM: no rashes or lesions noted Urinary Catheter Management^: Hastings: Cath Placed During This Visit: yes, but has since been removed by the nurse Reason for Continuing Indwelling Catheter: Decision to DC Catheter Urinary Catheter Date of Insertion: 05/28/21 Urinary Catheter Time of Insertion: 13:35 Date Urinary Catheter Removed: 06/02/21 Time Urinary Catheter Discontinued: 13:43 Data : 05/31/21 03:10 05/31/21 03:10 Micro: Microbiology 05/28/21 14:46 Blood Culture - Final Blood NO GROWTH AFTER 5 DAYS 05/28/21 13:08 Blood Culture - Final Blood Coagulase negativ staphylococc A&P Assessment and plan (1) Acute respiratory failure due to COVID-19: Continue to wean down oxygen support. 7 L today. Continue 6 L. Continue remdesivir, she will start IV, declines Tylenol), switch to oral pain continue supportive care. Completed remdesivir. Continue Eliquis. Follow-up D-dimer, CRP. Declined to have today's labs drawn. Status: Acute (2) COVID-19: As above. Status: Acute (3) Bacterial pneumonia: She lost IV access today, refused to have it replaced. Continue oral Levaquin. Monitor condition. Status: Acute Additional A&P Information Blood culture from day of admission 1 out of 3 bottles positive for gram-positive cocci. Most likely contaminant. Follow-up repeat culture, so far negative Morbid obesity. Cannot rule out underlying obstructive sleep apnea. Attestations Medical Necessity Statement*: Continue admission for assessment management of hypoxic respiratory failure secondary to severe COVID-19 with superimposed bacterial pneumonia. Coding Level of Care Code Acute Proposal Development Manager for [facility] Diagnoses Acute respiratory failure due to COVID-19 U07.1; J96.00 COVID-19 U07.1 Bacterial pneumonia J15.9
[2021-06-02] MEDS: dexamethasone 4 mg Tablet 6 MG PO (20:37)
--- NOTE | 2021-06-02 23:02 | PC.NURSE ---
Pt continues to have no IV access and will not allow staff to place another IV, therefore no IV ABX or steroids are able to be given via IV, pt has been educated on the importance of the treatment, Dr. Luis is aware and did changed her IV steroids to PO.
[2021-06-03] VITALS (10 sets, daily range): BP systolic 112–147; BP diastolic 72–85; PULSE 89–111; RESP 16–18; TEMP 36.6–36.8; O2SAT 86–96
[2021-06-03] MEDS: ipratropium-albuterol 3 mL Neb INHALATION ×3 (03:17→10:29)
[2021-06-03] MEDS: levoFLOXacin 500 mg Tablet PO (05:36)
[2021-06-03] MEDS: ascorbic acid 500 mg Tablet PO (09:11)
[2021-06-03] MEDS: zinc gluconate 50 mg Tablet PO (09:11)
[2021-06-03] MEDS: apixaban 5 mg Tablet PO (09:11)
[2021-06-03] MEDS: ferrous gluconate 324 mg Tablet PO (09:12)
[2021-06-03] MEDS: benzonatate 100 mg Capsule PO (09:12)
[2021-06-03] MEDS: budesonide 0.5 mg/2 mL Neb INHALATION (10:28)
--- NOTE | 2021-06-03 11:15 | PC.NURSE ---
pt continues to have no IV access and is still refusing to have one placed as well as no lab draws, pt states no one is touching me, my arms are finally healing . iv abx and pepcid are therefore unable to be administered. dr rayo was notified and is aware.
--- NOTE | 2021-06-03 11:19 | PC.NURSE ---
home O2 received telephone order from dr rayo for home o2 evaluation with possibility of discharge today, order placed by this nurse.
--- NOTE | 2021-06-03 13:16 | PM.DCS ---
Discharge Providers Date of Admission: 05/29/21 00:27 Date of Discharge: June 03, 2021 Attending Provider at Admission: Dayanna Rodriguez MD Attending Provider at Discharge: Casey Bean Primary Care Provider: Dyllan Lazo DO Diagnoses at Discharge Discharge Diagnosis (1) Acute respiratory failure due to COVID-19: Status: Acute (2) COVID-19: Status: Acute (3) Bacterial pneumonia: Status: Acute Reason for Visit Reason for Visit: COVID +/SOB/BODY ACHES/COUGHING BLOOD Hospital Course Hospital Course Pleasant 31-year-old lady with history of obesity was admitted and treated for severe COVID-19 with acute hypoxic respiratory failure, with noted superimposed bacterial pneumonia, growing Haemophilus para hemolyticus and sputum culture. In the hospital treated in addition to COVID-19 treatment including oxygen support, Decadron, remdesivir, other supportive care, transiently empirically on anticoagulation due to abnormal D-dimer, also treated with Primaxin and Levaquin for superimposed bacterial infection. Hypoxic respiratory failure requiring high flow oxygen as high as 10 L/min, gradually improved, cough improving. Oxygen requirement down to 3-5 L nasal cannula. She has been working well with incentive spirometry, flutter valve. Eating well. Getting up in her room. She states she is feeling much better, requesting for discharge home today. She will complete antibiotic course with Levaquin. Please follow-up for continued improvement of hypoxia, resolution of viral pneumonia and post Covid sequela, as well as superimposed bacterial infection. Consider follow-up imaging. Encourage Covid vaccination to prevent recurrence of severe COVID-19. Please discuss weight loss options. Physical Exam Const: COMMON NORMALS: no acute distress, patient oriented x3 and alert GENERAL APPEARANCE: cooperative and comfortable NUTRITIONAL APPEARANCE: obese ORIENTATION/CONSCIOUSNESS: Yes awake OTHER: Up in chair. HENMT: COMMON NORMALS: oropharynx normal Neck/C-Spine: COMMON NORMALS: no JVD Resp: COMMON NORMALS: normal respiratory effort and clear to auscultation bilaterally AUSCULTATION: clear to auscultation bilaterally Cardio: COMMON NORMALS: no JVD Extremity: COMMON NORMALS: no joint enlargement and no pedal edema Neuro: COMMON NORMALS: patient oriented x3 and moves all extremities SENSORIUM/ORIENTATION: Yes alert Skin: COMMON NORMALS: no rashes or lesions noted GENERAL SKIN EXAM: no rashes or lesions noted Urinary Catheter Management^: Hastings: Cath Placed During This Visit: yes, but has since been removed by the nurse Reason for Continuing Indwelling Catheter: Decision to DC Catheter Urinary Catheter Date of Insertion: 05/28/21 Urinary Catheter Time of Insertion: 13:35 Date Urinary Catheter Removed: 06/02/21 Time Urinary Catheter Discontinued: 13:43 Discharge Data Data Completed and Pending: Completed Studies During Hospitalization Category Date Time Status CT angio chest PE protcl [id number] Urge nt Cat Scan 05/28/21 10:31 Completed XR chest 1V alonso ble [id number] Q48H Exams 05/31/21 06:00 Completed XR chest 1V alosno ble [id number] Q48H Exams 06/02/21 06:00 Completed XR chest 1V alonso ble 19781 Q48H Exams 05/29/21 06:00 Completed XR chest 1V alonso ble [id number] Urgent Exams 05/28/21 10:17 [place] [id number] Urgent Ultrasound 05/28/21 11:57 Completed Pending at discharge Category Date Time Status Blood Culture Sta t Lab 05/29/21 17:36 Results C Reactive Protei n Q48H Lab 06/04/21 04:00 Ordered Complete Blood Co unt w/Auto AM LABS Lab 06/04/21 04:00 Ordered Complete Blood Co unt w/Auto AM LABS Lab 06/05/21 04:00 Ordered Comprehensive Met abolic Panel AM LA BS Lab 06/04/21 04:00 Ordered Comprehensive Met abolic Panel AM LA BS Lab 06/05/21 04:00 Ordered D Dimer Q48H Lab 06/04/21 04:00 Ordered Vitals: Last Vital Signs Temp 98.0 F 06/03/21 11:59 Pulse 94 06/03/21 11:59 Resp 16 06/03/21 11:59 BP 147/72 06/03/21 11:59 Pulse Ox 93 06/03/21 11:59 Discharge Plan Discharge Patient Disposition: Home Condition: Stable Prescriptions: New benzonatate 100 mg Capsule 100 mg PO TID Qty: 30 RF: 0 levofloxacin 500 mg Tablet 500 mg PO DAILY@0600 Qty: 5 RF: 0 Continued ondansetron HCl [Zofran] 4 mg tablet 4 mg PO TID PRN (Reason: nausea and vomiting) 4 Days Qty: 12 RF: 0 acetaminophen 500 mg tablet 500 mg PO Q6H PRN (Reason: pain) 5 Days Qty: 20 RF: 0 famotidine [Pepcid] 20 mg tablet 20 mg PO BID PRN (Reason: abdominal pain) 10 Days Qty: 20 RF: 0 Maalox Advanced 1,000-60 mg tablet,chewable 1 tab PO TID PRN (Reason: abdominal pain) 7 Days Qty: 21 RF: 0 Discharge Orders: Discharge Order (Routine); Ordered 06/03/21 Ordered By: Casey Bean Referrals: Dyllan Lazo DO [Primary Care Provider] - 4-7 days Discharge Activity: Oxygen as instructed Patient Instructions: Using Oxygen at Home (GEN), Hypoxia (GEN), COVID-19 (Coronavirus Disease 2019) (GEN), Opioid Safety Activity Restrictions/Additional Instructions: Continue oxygen at home. Wean down gradually, maintain saturation at or above 90-92%. Follow-up with your primary doctor for resolution of Covid pneumonia as well as superimposed bacterial pneumonia. Discussed consideration of repeat chest x-ray after resolution. In case oxygen saturation staying below 88% despite increasing oxygen and even at rest, or you are getting progressively more fatigued, experiencing high fever, chest pain or pressure, worsening cough or shortness of breath, or other concerning symptoms, seek medical attention. Obtain COVID-19 vaccination to help prevent recurrence of severe COVID-19. Discharge Attestations Time Spent in Discharge Care*: greater than 30 min Quality Metrics Clinical Quality Measures During this hospital stay, did patient experience: None Coding Level of Care Code Acute [facility] note Diagnoses Acute respiratory failure due to COVID-19 U07.1; J96.00 COVID-19 U07.1 Bacterial pneumonia J15.9
--- NOTE | 2021-06-03 15:52 | PC.NURSE ---
discharge instructions reviewed with pt, pt verbalized understanding. no iv to remove, no iv in place d/t pt refusal. pt was taken by wc on portable oxygen to private vehicle.
== END 2021-06-03 15:30 | disposition home or self-care (01) | DRG 177 ==
LOC: ER 23:01 → ICU 05-29 00:33 → MEDSURG 06-01 13:13
PROVIDERS: Student in an Organized Health Care Education/Training Program; Admitting Provider Student in an Organized Health Care Education/Training Program; Emergency Provider Physician Assistant; PCP Internal Medicine; Visit Provider Internal Medicine
DX: U07.1 COVID-19 (principal); J12.82 Pneumonia due to coronavirus disease 2019; J96.01 Acute respiratory failure with hypoxia; J14 Pneumonia due to Hemophilus influenzae; Z68.43 Body mass index [BMI] 50.0-59.9, adult; E66.01 Morbid (severe) obesity due to excess calories; G47.33 Obstructive sleep apnea (adult) (pediatric); F40.232 Fear of other medical care
CPT/HCPCS: 36415; 51702; 71045; 71275; 80053; 80061; 80202; 81001; 82728; 83036; 83540; 83550; 83605; 83735; 83880; 84100; 84145; 84443; 85025; 85378; 85384; 85610; 85730; 86140; 86403; 87040; 87070; 87205; 87449; 87641; 93005; 93970; 94640; 96365; 96367; 96375; 99291; J0743; J1100; J1940; J2405; J2543; J3370; J3490; J7030; J7626; J8540; Q9967

== ENCOUNTER 2023-01-26 16:24 | Outpatient (CLI) | payer BC, MEDICAID, SELFPAY | END 2023-01-26 16:25 | disposition home or self-care (01) | LOC: LAB 16:27 | PROVIDERS: PCP Family Medicine; Visit Provider Family Medicine | DX: R10.13 Epigastric pain (principal) | CPT/HCPCS: 87338 ==

== ENCOUNTER → 2023-04-27 14:30 | Outpatient (BNVA) | payer BC, MEDICAID, SELFPAY | PROVIDERS: PCP Family Medicine; Visit Provider Nurse Practitioner Women's Health | DX: F31.9 Bipolar disorder, unspecified (principal); R10.2 Pelvic and perineal pain; Z72.51 High risk heterosexual behavior; Z12.4 Encounter for screening for malignant neoplasm of cervix; Z30.41 Encounter for surveillance of contraceptive pills | CPT/HCPCS: 81000; 81025; 87624 ==

== ENCOUNTER → 2023-05-05 10:18 | Outpatient (BNVA) | payer BC, MEDICAID, SELFPAY | PROVIDERS: PCP Family Medicine; Visit Provider Nurse Practitioner Women's Health | DX: R10.2 Pelvic and perineal pain (principal); N94.89 Other specified conditions associated with female genital organs and menstrual cycle | CPT/HCPCS: 76830 ==

== ENCOUNTER 2023-06-08 12:41 | Outpatient (CLI) | payer BC, MEDICAID, SELFPAY ==
--- NOTE | 2023-06-08 13:00 | MR_ITS ---
WS: [id number] MRI PELVIS WITH AND WITHOUT CONTRAST. COMPARISON: Transvaginal ultrasound 05/05/2023 Multiplanar, multisequence imaging is performed with and without contrast. History: Right-sided pelvic pain. Ovarian mass seen on recent ultrasound. There is a complex mass noted within the pelvis above the urinary bladder. Variable signal mass seen on all sequences. On the T1 sequences mass is of intermediate to increased signal which does suppress on the T1 fat suppression sequences. Fat-containing mass with a separate nodule. There is a nodule w hich is irregular in the LEFT lateral aspect of this large mass along with a fat level anteriorly. Th is mass has imaging features of a mature teratoma. Mass measures 11.9 x 9.9 x 10.5 cm. The mural nodu le with septations and variable echogenicity on the LEFT measures 5.3 x 6.0 cm. Diffusion imaging is positive. There is very minimal enhancement within the nodule. The RIGHT ovary is identified as a separate entity. The large mass in the central pelvis is contiguou s with the ovarian suspensory ligament. No free fluid. Uterus is anteverted. Normal endometrium. IMPRESSION: 1. Large heterogeneous mass centered above the urinary bladder measures 11.9 x 9.9 x 10.5 cm. 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 Recommend surgical e xcision due to its large size, favor benign mass but this needs to be surgically excised. 2. RIGHT ovary is identified as a separate structure with small follicles. 3. No ascites.
[2023-06-08] MEDS: gadobenate dimeglumine 20 mL vial IV (14:35)
== END 2023-06-08 12:42 | disposition home or self-care (01) ==
LOC: RAD 12:42
PROVIDERS: PCP Family Medicine; Visit Provider Nurse Practitioner Women's Health
DX: N83.8 Other noninflammatory disorders of ovary, fallopian tube and broad ligament (principal)
CPT/HCPCS: 72197; A9577

== ENCOUNTER → 2023-08-16 14:36 | Outpatient (BNVA) | payer BC, MEDICAID, SELFPAY | PROVIDERS: PCP Family Medicine; Visit Provider Family Medicine | DX: L65.9 Nonscarring hair loss, unspecified (principal) | CPT/HCPCS: 84443 ==

== ENCOUNTER 2023-09-06 10:42 | Outpatient (CLI) | payer BC, MEDICAID, SELFPAY ==
--- NOTE | 2023-09-06 10:49 | XRR_ITS ---
PROCEDURE INFORMATION: Exam: XR Lumbosacral Spine Exam date and time: 09/06/2023 10:55 AM Age: 33 years old Clinical indication: Low back pain; Additional info: Chronic low back pain TECHNIQUE: Imaging protocol: Radiologic exam of the lumbosacral spine. Views: 2 or 3 views. COMPARISON: MR pelvis wo/w con [id number] 06/08/2023 1:07 PM FINDINGS: Bones/joints: There is mild to moderate lumbosacral disc space narrowing. Remaining disc spaces are normal. No acute fracture. Normal alignment. Soft tissues: There are right upper quadrant clips. XR/XR lumbar spine 2-3V* [id number] IMPRESSION: No acute findings.
== END 2023-09-06 10:43 | disposition home or self-care (01) ==
LOC: RAD 10:44
PROVIDERS: PCP Family Medicine; Visit Provider Family Medicine
DX: M54.50 Low back pain, unspecified (principal); G89.29 Other chronic pain
CPT/HCPCS: 72100

== ENCOUNTER → 2023-10-26 08:30 | Outpatient (BNVA) | payer BC, SELFPAY | PROVIDERS: PCP Family Medicine; Visit Provider Nurse Practitioner Women's Health | DX: N92.6 Irregular menstruation, unspecified (principal); E66.01 Morbid (severe) obesity due to excess calories; E28.2 Polycystic ovarian syndrome; Z34.90 Encounter for supervision of normal pregnancy, unspecified, unspecified trimester | CPT/HCPCS: 81025; 83036; 84443; 84702; 86850; 86900 ==

== ENCOUNTER → 2023-10-27 09:59 | Outpatient (BNVA) | payer BC, SELFPAY | PROVIDERS: PCP Family Medicine; Visit Provider Obstetrics & Gynecology | DX: Z36.87 Encounter for antenatal screening for uncertain dates (principal) | CPT/HCPCS: 76817; 84439 ==

== ENCOUNTER → 2023-11-12 08:20 | Outpatient (BNVA) | payer BC, SELFPAY | PROVIDERS: PCP Family Medicine; Visit Provider Nurse Practitioner Women's Health | DX: Z34.90 Encounter for supervision of normal pregnancy, unspecified, unspecified trimester (principal) | CPT/HCPCS: 80307; 82950; 84315; 85025; 86592; 86762; 86803; 87086; 87340; 87806 ==

== ENCOUNTER → 2023-12-23 08:42 | Outpatient (BNVA) | payer BC, MEDICAID, SELFPAY | PROVIDERS: PCP Family Medicine Adult Medicine; Visit Provider Family Medicine Adult Medicine | DX: L65.9 Nonscarring hair loss, unspecified (principal); O99.212 Obesity complicating pregnancy, second trimester; E66.01 Morbid (severe) obesity due to excess calories; M54.50 Low back pain, unspecified; G89.29 Other chronic pain | CPT/HCPCS: 84439; 84443 ==

== ENCOUNTER → 2023-12-24 07:59 | Outpatient (BNVA) | payer BC, MEDICAID, SELFPAY | PROVIDERS: PCP Family Medicine Adult Medicine; Visit Provider Nurse Practitioner Women's Health | DX: Z34.90 Encounter for supervision of normal pregnancy, unspecified, unspecified trimester (principal) | CPT/HCPCS: 82105; 84315; 87086; 87491; 87591 ==

== ENCOUNTER → 2024-01-11 14:24 | Outpatient (BNVA) | payer BC, MEDICAID, SELFPAY | PROVIDERS: PCP Family Medicine Adult Medicine; Visit Provider Obstetrics & Gynecology | DX: Z36.2 Encounter for other antenatal screening follow-up (principal); Z3A.21 21 weeks gestation of pregnancy | CPT/HCPCS: 76805 ==

== ENCOUNTER → 2024-02-08 15:13 | Outpatient (BNVA) | payer BC, MEDICAID, SELFPAY | PROVIDERS: PCP Family Medicine Adult Medicine; Visit Provider Obstetrics & Gynecology | DX: Z36.2 Encounter for other antenatal screening follow-up (principal); Z3A.24 24 weeks gestation of pregnancy | CPT/HCPCS: 76816 ==

== ENCOUNTER → 2024-02-10 08:12 | Outpatient (BNVA) | payer BC, MEDICAID, SELFPAY | PROVIDERS: PCP Family Medicine Adult Medicine; Visit Provider Nurse Practitioner Women's Health | DX: Z34.90 Encounter for supervision of normal pregnancy, unspecified, unspecified trimester (principal) | CPT/HCPCS: 82950; 84315 ==

== ENCOUNTER → 2024-03-10 13:46 | Outpatient (BNVA) | payer BC, MEDICAID, SELFPAY | PROVIDERS: PCP Family Medicine Adult Medicine; Visit Provider Obstetrics & Gynecology | DX: O09.899 Supervision of other high risk pregnancies, unspecified trimester (principal); E66.01 Morbid (severe) obesity due to excess calories | CPT/HCPCS: 84315; 85025 ==

== ENCOUNTER → 2024-04-18 10:19 | Outpatient (BNVA) | payer BC, SELFPAY | PROVIDERS: PCP Family Medicine Adult Medicine; Visit Provider Nurse Practitioner Women's Health | DX: O09.899 Supervision of other high risk pregnancies, unspecified trimester (principal) | CPT/HCPCS: 84315; 84443 ==

== ENCOUNTER → 2024-05-01 13:15 | Outpatient (BNVA) | payer BC, SELFPAY | PROVIDERS: PCP Family Medicine Adult Medicine; Visit Provider Obstetrics & Gynecology | DX: O09.899 Supervision of other high risk pregnancies, unspecified trimester (principal) | CPT/HCPCS: 84315; 87081 ==

== ENCOUNTER → 2024-05-02 10:16 | Outpatient (BNVA) | payer BC, SELFPAY | PROVIDERS: PCP Family Medicine Adult Medicine; Visit Provider Obstetrics & Gynecology | DX: O09.899 Supervision of other high risk pregnancies, unspecified trimester (principal) | CPT/HCPCS: 76816 ==

== ENCOUNTER → 2024-05-18 12:22 | Outpatient (BNVA) | payer BC, SELFPAY | PROVIDERS: PCP Family Medicine Adult Medicine; Visit Provider Obstetrics & Gynecology | DX: Z34.90 Encounter for supervision of normal pregnancy, unspecified, unspecified trimester (principal) | CPT/HCPCS: 76816 ==

== ENCOUNTER 2024-05-27 12:05 | Outpatient (CLI) | payer BC, MEDICAID, SELFPAY ==
[2024-05-27 12:05] VITALS: BMI 58.4
[2024-05-27 12:30] VITALS: BP 136/63; PULSE 86
[2024-05-27 12:53] VITALS: BP 127/63; PULSE 91
== END 2024-05-27 13:26 | disposition home or self-care (01) ==
LOC: OPOB 12:08 → OBGYN 12:09
PROVIDERS: PCP Family Medicine Adult Medicine; Visit Provider Obstetrics & Gynecology
DX: O26.899 Other specified pregnancy related conditions, unspecified trimester (principal); Z3A.00 Weeks of gestation of pregnancy not specified; R42 Dizziness and giddiness
CPT/HCPCS: 59025; 99211

== ENCOUNTER 2024-06-01 09:42 | Inpatient (IN) | payer BC, MEDICAID, SELFPAY ==
[2024-06-01] VITALS (67 sets, daily range): BP systolic 102–175; BP diastolic 50–119; PULSE 61–130; RESP 17–18; TEMP 35.8–36.8; BMI 59.2
[2024-06-01] MEDS: dextrose 5%-sod chloride 0.45% 1,000 ML 125 ML IV (09:42)
[2024-06-01] MEDS: ampicillin 2,000 MG in sodium chloride 0.9% (plus) 50 ML 100 MG IV (09:42)
--- NOTE | 2024-06-01 09:50 | P.HP_ITS ---
Providers/Chief Complaint 2 Admitting Physician: Ty Martinez MD Primary ELECTRONIC SYSTEMS SECURITY ASSESSMENT: Taqueria Tavarez MD Primary Care Provider: Gutierrez Adair MD Chief Complaint: IOL HPI ELECTRONIC SYSTEMS SECURITY ASSESSMENT History of Present Illness Danya Patel is a 34 year old female EDC May 28, 2024 At 40 w 4 d No complications Admitted for induction of labor No c/o + active movements Present Details : 2 Para: 1 Labs Rubella: Immune RPR: Negative GBS: Positive Medications/Allergies Home Medications Medication Instructions Recorded Confirmed Last Taken Type buspirone 5 mg tablet 5 mg PO TID PRN 04/27/23 05/29/24 Unknown History fluticasone propionate 50 2 spray intranasal DAILY #16 grams 04/29/23 05/29/24 Unknown Rx mcg/actuation nasal spray,suspension (Flonase Allergy Relief) famotidine 20 mg tablet 20 mg PO BID #180 tabs 08/09/23 05/29/24 Unknown Rx biotin 1 mg capsule 1 mg PO DAILY 10/26/23 05/29/24 Unknown History cholecalciferol (vitamin D3) 25 25 mcg PO DAILY 10/26/23 05/29/24 Unknown History mcg (1,000 unit) capsule docosahexaenoic acid 200 mg 200 mg PO DAILY 10/26/23 05/29/24 Unknown History capsule ( DHA) lamotrigine 50 mg tablet,extended See Rx Instructions .Route 03/16/24 05/29/24 Unknown Rx release 24 hr .COMPLEX #30 tabs sertraline 100 mg tablet 200 mg (2 x 100 mg) PO DAILY #60 03/16/24 05/29/24 Unknown Rx tabs tizanidine 2 mg tablet 2 mg PO Q8H PRN muscle spasticity 04/17/24 05/29/24 Unknown Rx #90 tabs metoclopramide HCl 10 mg tablet See Rx Instructions .Route 04/18/24 05/29/24 Unknown Rx .COMPLEX #120 tabs levothyroxine 25 mcg tablet 25 mcg PO DAILY #90 tabs 04/19/24 05/29/24 Unknown Rx Allergies Allergy/AdvReac Type Severity Reaction Status Date / Time No Known Allergies Allergy Verified 05/29/24 10:20 PFSH ELECTRONIC SYSTEMS SECURITY ASSESSMENT 2 PFSH: Medical History Psychiatric care Ovarian mass, right (~07/2023) left ovarian mature teratoma; removed Migraine without aura Surgical History H/O ovarian cystectomy (~07/08/23) Left ovarian cystectomy, left ovarian repair performed by Dr. Ledesma; pathology- mature cystic teratoma. Hx of cholecystectomy (~2009) Family History Grandmother Breast cancer Paternal, dx age unknown Grandfather Cancer Of his eye Mother Diabetes Heart disease Thyroid disease Denies family history of Ovarian cancer Prostate cancer Hyperlipidemia Hypertension Uterine cancer Stroke Social History Smoking and tobacco/nicotine status: never used tobacco/nicotine History History History 2 2 Term 1 0 Miscarriages/Ectopic 0 Living Children 1 Care IVANA Calculator 2 Estimated Delivery Date Method Current WG Current Estimate 05/28/24 Ultrasound #1 40w 5d Other Estimates 05/10/24 LMP (Uncertain) 43w 2d Specific Issues/Plans * GBS CARRIER; treated with keflex; AYUSH at 17 wks clear; GBS PROTOCOL IN L/D * OBESITY * BIPOLAR * PCOS-early GCT 138; rpt at 25 * MIGRAINE * HYPOTHYROIDISM-started levothyroxine 25mcg at 9 weeks * Uterine size date discrepancy; IVANA based off 9-week sonogram * Desires sterilization Vitals/I&O/Wt Last Vital Signs Temp 95.5 F L 06/02/24 01:17 Pulse 110 H 06/02/24 04:59 Resp 17 06/01/24 18:22 BP 124/70 06/02/24 04:59 O2 Del Method Room Air 06/01/24 09:29 06/01/24 06/01/24 06/02/24 14:59 22:59 06:59 Intake Total 162.5 / 162.5 3087.084 / 3249.584 50 / 3299.584 Balance 162.5 / 162.5 3087.084 / 3249.584 50 / 3299.584 Weight last 48 hrs Weight 367 lb Physical Exam 2 Narrative: Weight 367 lbs; 5?6?; BMI 60 VS normal General: comfortable, awake, alert Lungs: clear Cor: RRR Abd: soft Cervix: 1 ? 2 cm / long / -3 / posterior Ext: normal External monitor: heart tracing good variability, + accelerations Urinary Catheter Management: Hastings: Cath Placed During This Visit: yes Urinary Catheter Date of Insertion: 06/01/24 Urinary Catheter Time of Insertion: 19:10 Data 06/01/24 09:25 Results Labs OB ([facility]): 2 Obstetrics US 05/18/24 Blood Type A Positive 06/01/24 Antibody Screen Negative 06/01/24 Hct 39.3 % (36-47) 06/01/24 Hgb 13.30 g/dL (11.27-16.99) 06/01/24 Rho(D) Type Rh positive 06/01/24 Plt Count 215 10^3/cmm (157-399) 06/01/24 Hep Bs Antigen Non-reactive (Nonreactive) 11/12/23 Hepatitis C Antibody Non-reactive (Nonreactive) 11/12/23 Rubella IgG Antibody 32.8 IU/mL (0.0-10.0) H 11/12/23 RPR Nonreactive (Nonreactive) 11/12/23 HIV 1&2 Ab & HIV 1 Ag Non-reactive (Non-Reactiv) 11/12/23 TSH 1.79 uIU/mL (0.27-4.20) 04/18/24 Free T4 0.80 ng/dL (0.82-1.77) L 12/23/23 C.trachomatis RNA (TMA) Not detected (NOT DETECTED) N.gonorrhoeae RNA (TMA) Not detected (NOT DETECTED) T. vaginalis Amp RNA Not detected (NOT DETECTED) 12/24/23 Chlamydia/GC Comment See note 12/24/23 Cystic Fibrosis Screen Negative 11/12/23 Glucose 1 Hr 50 gm 130 mg/dL (85-140) 02/10/24 Hemoglobin A1c 5.4 % (4.0-6.0) 10/26/23 Ser , Semi-Qnt 25205.00 mIU/mL 10/26/23 HCG, Qual Positive (Negative) H 10/26/23 Urine Opiates Screen Negative ng/mL (Negative) 11/12/23 Ur Barbiturates Screen Negative ng/mL (Negative) 11/12/23 Ur Phencyclidine Scrn Negative ng/mL (Negative) 11/12/23 Ur Amphetamines Screen Negative ng/mL (Negative) 11/12/23 U Benzodiazepines Scrn Negative ng/mL (Negative) 11/12/23 Urine Cocaine Screen Negative ng/mL (Negative) 11/12/23 U Marijuana (THC) Screen Negative ng/mL (Negative) 11/12/23 Micro Urine Specimen 12/24/23 Pap Smear Interpret See note 04/27/23 A&P Assessment and plan (1) Encounter for induction of labor: 40 w 4 d Admit for induction of labor Plan Cytotec 25 ug intravaginal (2) GBS bacteriuria: GBS + start Abx Attestations 2 Medical Necessity Statement*: patient at 40 w 4 d, admitted for induction of labor Coding Level of Care Code Acute Code for Chg Fwd Diagnoses Encounter for induction of labor Z34.90 GBS bacteriuria R82.71 Time Spent (min) 60
[2024-06-01] MEDS: miSOPROStol 100 mcg tablet 25 MCG VAGINAL (10:06)
[2024-06-01 10:08] LABS: Basophils % 0.3 %; Eosinophils % 0.5 %; Hematocrit 39.3 % (36-47); Lymphocytes # 2.1 10^3/uL (0.8-4.8); Lymphocytes % 27.5 %; Mean Corpuscular HGB Conc 33.8 g/dL (30-55); Mean Corpuscular Hemoglobin 30.9 pg (27-33); Mean Corpuscular Volume 91.2 fl (85-98); Mean Platelet Volume 10.5 fL (7.4-10.4); Monocytes # 0.7 10^3/uL (0.2-0.9); Monocytes % 9.4 %; Neutrophils # 4.77 10^3/uL (1.8-7.7); Neutrophils % 61.9 %; Nucleated Red Blood Cells % 0 %; Platelet Count 215 10^3/cmm (157-399); Red Blood Count 4.31 10^6/uL (3.85-5.65); Red Cell Distribution Width 13.8 % (12.1-15.1)
--- NOTE | 2024-06-01 12:00 | P.ANESASSM_ITS ---
Pre-Anesthetic Assessment Height/Weight: Height 1.68 m Weight 166.468 kg Temp Pulse Resp BP O2 Del Method 96.4 F L 78 18 114/71 Room Air 06/01/24 10:10 06/01/24 18:10 06/01/24 17:42 06/01/24 18:10 06/01/24 09:29 Preop Diagnosis: labor pain epidural Familial anesthetic complications: woke up slowing from anesthesia in jul 2023. Was Beta Yecenia taken within 24 hours: N/A Was Clonidine taken within 24 hours: N/A Social No alcohol and No tobacco Exam alert and oriented x 3 Airway Submandibular: within normal limits Cervical ROM: within normal limits Mallampati: Class III Dentition: full History/ROS No significant history except as noted Pulmonary None reported pnuemonia after covid, hospitalized, on O2 for a month or so. no issues since. no asthma per patient CV/HEM None reported None reported Hepatic None reported GI Gastroesophageal Reflux Disease Metabolic Morbid Obesity and Thyroid Disease Musc/skel Lower Back Pain (pt states she has compression in her lower back.) Neuropsych Anxiety Anesthetic Plan ASA status: 3 Anesthesia: Anesthesia Evaluation and Regional (specify below) Medications/Allergies Home Medications Medication Instructions Recorded Confirmed Last Taken Type buspirone 5 mg tablet 5 mg PO TID PRN 04/27/23 05/29/24 Unknown History fluticasone propionate 50 2 spray intranasal DAILY #16 grams 04/29/23 05/29/24 Unknown Rx mcg/actuation nasal spray,suspension (Flonase Allergy Relief) famotidine 20 mg tablet 20 mg PO BID #180 tabs 08/09/23 05/29/24 Unknown Rx biotin 1 mg capsule 1 mg PO DAILY 10/26/23 05/29/24 Unknown History cholecalciferol (vitamin D3) 25 25 mcg PO DAILY 10/26/23 05/29/24 Unknown History mcg (1,000 unit) capsule docosahexaenoic acid 200 mg 200 mg PO DAILY 10/26/23 05/29/24 Unknown History capsule ( DHA) lamotrigine 50 mg tablet,extended See Rx Instructions .Route 03/16/24 05/29/24 Unknown Rx release 24 hr .COMPLEX #30 tabs sertraline 100 mg tablet 200 mg (2 x 100 mg) PO DAILY #60 03/16/24 05/29/24 Unknown Rx tabs tizanidine 2 mg tablet 2 mg PO Q8H PRN muscle spasticity 04/17/24 05/29/24 Unknown Rx #90 tabs metoclopramide HCl 10 mg tablet See Rx Instructions .Route 04/18/24 05/29/24 Unknown Rx .COMPLEX #120 tabs levothyroxine 25 mcg tablet 25 mcg PO DAILY #90 tabs 04/19/24 05/29/24 Unknown Rx Allergies Allergy/AdvReac Type Severity Reaction Status Date / Time No Known Allergies Allergy Verified 05/29/24 10:20 Current Medications Generic Name Dose Route Start Last Admin Trade Name Freq PRN Reason Stop Dose Admin Fentanyl 25 - 100 mcg 06/01/24 07:41 06/01/24 17:42 Fentanyl 50 Mcg/Ml Inj 2ml IVP 25 mcg Q1H PRN Administration SEVERE PAIN Dextrose/Sodium Chloride 1,000 mls @ 125 mls/hr 06/01/24 07:45 06/01/24 16:55 Dextrose 5%-Sod Chloride 0.45% IV 0 mls/hr .Q8H CORRINA Infusion Ampicillin Sodium 1,000 mg/ 50 mls @ 100 mls/hr 06/01/24 13:45 06/01/24 17:42 Sodium Chloride IV 06/04/24 13:45 100 mls/hr Q4H CORRINA Administration Protocol Ropivacaine 100 mg in 50 mls @ 10 mls/hr 06/01/24 17:00 06/01/24 18:10 Naropin Syringe EPIDURAL 10 mls/hr .Q5H CORRINA Administration Sodium Chloride 1,000 mls @ 999 mls/hr 06/01/24 16:49 06/01/24 18:10 Sodium Chloride 0.9% IV 999 mls/hr .Q1H1M PRN Administration See label comments PFSH Anesthesia Medical History Psychiatric care Ovarian mass, right (~07/2023) left ovarian mature teratoma; removed Migraine without aura Surgical History H/O ovarian cystectomy (~07/08/23) Left ovarian cystectomy, left ovarian repair performed by Dr. Ledesma; pathology- mature cystic teratoma. Hx of cholecystectomy (~2009) Family History Grandmother Breast cancer Paternal, dx age unknown Grandfather Cancer Of his eye Mother Diabetes Heart disease Thyroid disease Denies family history of Ovarian cancer Prostate cancer Hyperlipidemia Hypertension Uterine cancer Stroke Social History Smoking and tobacco/nicotine status: never used tobacco/nicotine Female Reproductive History : 2 Data Anesthesia 06/01/24 09:25 Short CBC 06/01/24 Range/Units 09:25 WBC 7.70 (3.29-11.43) 10^3/uL Hgb 13.30 (11.27-16.99) g/dL Hct 39.3 (36-47) % MCV 91.2 (85-98) fl Plt Count 215 (157-399) 10^3/cmm Neut % (Auto) 61.9 % Neut # (Auto) 4.77 (1.8-7.7) 10^3/uL Blood Bank 06/01/24 09:25 Blood Type A Positive Rho(D) Type Rh positive Antibody Screen Negative Cardiac Studies: 2 No Data to Display
[2024-06-01] MEDS: ampicillin 1,000 MG in sodium chloride 0.9% (plus) 50 ML 100 MG IV ×3 (14:14→22:16)
[2024-06-01] MEDS: sodium chloride 0.9% 1,000 ML 999 ML IV ×2 (16:55→18:10)
[2024-06-01] MEDS: fentaNYL 50 mcg/mL INJ 2mL IVP (17:42)
[2024-06-01] MEDS: ROPivacaine syringe 100 MG/50 ML SYRINGE 10 MG EPIDURAL ×2 (18:10→22:19)
--- NOTE | 2024-06-01 18:13 | ANES.PROC ---
Anesthesia Procedures Procedure/Date: 06/01/24 Epidural: Time Out Performed: Yes Consents Signed: Procedure Consent Consent: from patient, risks and benefits reviewed and patient agrees to proceed Lumbar Level: L3-L4 Epidural position: sitting Epidural procedure: sterile prep of area, 1% lidocaine to numb the area, 18 g needle, negative for paresthesia passed, neg for paresthesia, test dose given, 1.5% xylocaine 1:200k epi, placed PCEA, no systemic response, sterile dressing applied, L.U.D. no apparent complications and 0.2% Ropiavacaine @ mls/hr (10) Additional Comments: a few re-direction attempts, ALESSANDRA at 8.5. negative heme/CSF upon aspiration. tolerated well. pt states relief. catheter threaded to 15 at skin.
--- NOTE | 2024-06-01 20:05 | PM.OBGYPN ---
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 Subjective: Interval history: Fetus reassuring Patient had spontaneous rupture of membranes Comfortable with epidural Cervix: 3 cm / 90 / -3 / posterior Attempted to place FSE Labor: Station: -2 Amniotic Membrane Status: Ruptured Monitor Mode: External Contraction Pattern: Regular Status: Category I Vitals/I&O/Wt Last Vital Signs Temp 95.5 F L 06/02/24 01:17 Pulse 110 H 06/02/24 04:59 Resp 17 06/01/24 18:22 BP 124/70 06/02/24 04:59 O2 Del Method Room Air 06/01/24 09:29 06/01/24 06/01/24 06/02/24 14:59 22:59 06:59 Intake Total 162.5 / 162.5 3087.084 / 3249.584 50 / 3299.584 Balance 162.5 / 162.5 3087.084 / 3249.584 50 / 3299.584 Weight last 48 hrs Weight 367 lb Physical Exam Urinary Catheter Management: Hastings: Cath Placed During This Visit: yes Urinary Catheter Date of Insertion: 06/01/24 Urinary Catheter Time of Insertion: 19:10 Data 06/01/24 09:25 A&P Assessment and plan (1) Encounter for induction of labor: (2) GBS bacteriuria: Attestations Medical Necessity Statement*: patient at 40 w 4 d, admitted for induction of labor Coding Level of Care Code Acute Code for Chg Fwd Diagnoses Encounter for induction of labor Z34.90 GBS bacteriuria R82.71 Time Spent (min) 20
[2024-06-01] MEDS: oxytocin 30 UNIT/500 ML BAG IV (20:34)
[2024-06-01] MEDS: calcium carbonate 500 mg Chew Tablet 1000 MG PO (20:54)
[2024-06-02] VITALS (28 sets, daily range): BP systolic 109–143; BP diastolic 50–91; PULSE 66–110; RESP 17–18; TEMP 35.3–37.2; O2SAT 95–97
[2024-06-02] MEDS: ROPivacaine syringe 100 MG/50 ML SYRINGE 10 MG EPIDURAL (01:38)
[2024-06-02] MEDS: ampicillin 1,000 MG in sodium chloride 0.9% (plus) 50 ML 100 MG IV (02:23)
--- NOTE | 2024-06-02 02:35 | PM.OBGYPN ---
DIRECTOR OF COMPENSATION Subjective Subjective: Interval history: Fetus reassuring Cervix: complete / +1 Start pushing efforts Labor: Station: -2 Amniotic Membrane Status: Ruptured Monitor Mode: External Contraction Pattern: Regular Status: Category I Vitals/I&O/Wt Last Vital Signs Temp 95.5 F L 06/02/24 01:17 Pulse 110 H 06/02/24 04:59 Resp 17 06/01/24 18:22 BP 124/70 06/02/24 04:59 O2 Del Method Room Air 06/01/24 09:29 06/01/24 06/01/24 06/02/24 14:59 22:59 06:59 Intake Total 162.5 / 162.5 3087.084 / 3249.584 50 / 3299.584 Balance 162.5 / 162.5 3087.084 / 3249.584 50 / 3299.584 Weight last 48 hrs Weight 367 lb Physical Exam Urinary Catheter Management: Hastings: Cath Placed During This Visit: yes Urinary Catheter Date of Insertion: 06/01/24 Urinary Catheter Time of Insertion: 19:10 Data 06/01/24 09:25 A&P Assessment and plan (1) Encounter for induction of labor: Attestations Medical Necessity Statement*: patient at 40 w 4 d, admitted for induction of labor Coding Level of Care Code Acute Code for Chg Fwd Diagnoses Encounter for induction of labor Z34.90 Time Spent (min) 20
[2024-06-02] MEDS: carboprost tromethamine 250 mcg/mL Amp IM (03:33)
--- NOTE | 2024-06-02 03:45 | P.PN_ITS ---
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 Subjective: Interval history: DELIVERY NOTE , vigorous male Cord gases obtained Normal placenta and cord Midline episiotomy with second-degree perineal laceration repaired Moderate hemorrhage controlled with Cytotec 400 ug intravaginal and hemabate 250 ug IM x one EBL: 600 cc No complications Labor: Station: -2 Amniotic Membrane Status: Ruptured Monitor Mode: External Contraction Pattern: Regular Status: Category I Vitals/I&O/Wt Last Vital Signs Temp 95.5 F L 06/02/24 01:17 Pulse 110 H 06/02/24 04:59 Resp 17 06/01/24 18:22 BP 124/70 06/02/24 04:59 O2 Del Method Room Air 06/01/24 09:29 06/01/24 06/01/24 06/02/24 14:59 22:59 06:59 Intake Total 162.5 / 162.5 3087.084 / 3249.584 50 / 3299.584 Balance 162.5 / 162.5 3087.084 / 3249.584 50 / 3299.584 Weight last 48 hrs Weight 367 lb Physical Exam 2 Urinary Catheter Management: Hastings: Cath Placed During This Visit: yes Urinary Catheter Date of Insertion: 06/01/24 Urinary Catheter Time of Insertion: 19:10 Data 06/01/24 09:25 A&P Assessment and plan (1) Vaginal delivery: Attestations 2 Medical Necessity Statement*: patient s/p vaginal delivery Coding Level of Care Code Acute Code for Chg Fwd Diagnoses Vaginal delivery O80 Time Spent (min) 60
--- NOTE | 2024-06-02 03:50 | PM.DELIVERY ---
Delivery Note: Date of delivery: June 02, 2024 Pre-delivery diagnoses: 40 w 4 d induction of labor GBS + Post-delivery diagnoses: 40 w 4 d induction of labor GBS + vaginal delivery repair of second-degree perineal laceration Procedure: induction of labor vaginal delivery repair of second-degree perineal laceration Op report anesthesia: Epidural Delivering Physician: Ty Martinez MD Estimated blood loss (mL): 600 Findings: , vigorous male Cord gases obtained Normal placenta and cord Midline episiotomy with second-degree perineal laceration repaired Moderate hemorrhage controlled with Cytotec 400 ug intravaginal and hemabate 250 ug IM x one EBL: 600 cc No complications Pre-Delivery Course: normal labor course fetus reassuring throughout Delivery: vaginal Post-Delivery Status: good History History History 2 Term 1 0 Miscarriages/Ectopic 0 Living Children 1 A&P Assessment and plan (1) Vaginal delivery: Coding Level of Care Code Acute Code for Chg Fwd Diagnoses Vaginal delivery O80 Time Spent (min) 60
[2024-06-02] MEDS: ondansetron 2 mg/ML SDV 2 mL 4 MG IVP (04:08)
[2024-06-02] MEDS: ibuprofen 800 mg tablet PO ×3 (09:41→21:35)
[2024-06-02] MEDS: PRENATAL VIT NO.130/IRON/FOLIC 1 EACH TABLET PO (09:41)
[2024-06-02 15:45] LABS: Hematocrit 32.3 % (36-47); Mean Corpuscular HGB Conc 34.4 g/dL (30-55); Mean Corpuscular Hemoglobin 30.2 pg (27-33); Platelet Count 191 10^3/cmm (157-399); Red Blood Count 3.67 10^6/uL (3.85-5.65); Red Cell Distribution Width 13.6 % (12.1-15.1); White Blood Count 13.57 10^3/uL (3.29-11.43)
[2024-06-02] MEDS: HYDROcodone-acetaminophen 5-325 mg Tablet PO (20:12)
--- NOTE | 2024-06-03 08:00 | ANE.PACU2 ---
Inpatient post-anesthesia follow up: Airway intact: Yes Vital signs: Temperature 98.0 F Pulse Rate 85 Respiratory Rate 17 Blood Pressure 114/68 Pulse Oximetry 97 Oxygen Delivery Me thod Room Air Oxygen Flow Rate Fraction of Inspir ed Oxygen Hydration adequate: Yes Nausea and vomiting: No Pain level: 1 Mental status: Baseline Epidural Start/End: Epidural Start Date: 06/01/24 Epidural Start Time: 17:45 Epidural End Date: 06/02/24 Epidural End Time: 05:35
--- NOTE | 2024-06-03 08:23 | PM.OBGYDC ---
Discharge Providers [employer] Date of Admission: 06/01/24 09:42 Date of Discharge: 06/03/24 Attending Provider at Admission: Ty Martinez MD Attending Provider at Discharge: Ty Martinez MD Primary Care Provider: Gutierrez Adair MD Diagnoses at Discharge Discharge Diagnosis (1) Vaginal delivery: Details from hospital stay: 34-year-old female G2, P2 delivered via after induction of labor. Patient's course has been uneventful. Patient is tolerating a regular diet, voiding and bottlefeeding baby. She denies headaches blurred vision shortness of breath chest pain or excessive bleeding. Discharge expectations have been reviewed with patient to include no strenuous activities or sexual intercourse x 6 weeks. Patient is advised to continue vitamins daily. Patient is also encouraged to continue her home medication. VSS, afebrile Status: Acute Reason for Visit Reason for Visit: IOL Hospital Course Hospital Course See above Information Peripartum Data: Infant Delivery Method: Vaginal Physical Exam Narrative: 34-year-old female alert and orient x 3 no acute distress Cardio: COMMON NORMALS: regular rate and regular rhythm RATE: regular rate RHYTHM: regular rhythm Back/Pelvis: OTHER: Abdomen?soft, fundus firm Lochia light. Extremity: COMMON NORMALS: normal to inspection, no clubbing, cyanosis or edema and no calf tenderness Urinary Catheter Management: Hastings: Cath Placed During This Visit: yes, but has since been removed by the nurse Reason for Continuing Indwelling Catheter: Decision to DC Catheter Urinary Catheter Date of Insertion: 06/01/24 Urinary Catheter Time of Insertion: 19:10 Date Urinary Catheter Removed: 06/02/24 Time Urinary Catheter Discontinued: 03:00 History History History 2 Term 2 0 Miscarriages/Ectopic 0 Living Children 2 Discharge Data Studies Completed and Pending Laboratory Results WBC 13.57 10^3/uL (3.29-11.43) H 06/02/24 15:29 RBC 3.67 10^6/uL (3.85-5.65) L 06/02/24 15:29 Hgb 11.10 g/dL (11.27-16.99) L 06/02/24 15:29 Hct 32.3 % (36-47) L 06/02/24 15:29 MCV 88.0 fl (85-98) 06/02/24 15:29 MCH 30.2 pg (27-33) 06/02/24 15:29 MCHC 34.4 g/dL (30-55) 06/02/24 15:29 RDW 13.6 % (12.1-15.1) 06/02/24 15:29 Plt Count 191 10^3/cmm (157-399) 06/02/24 15:29 MPV 10.0 fL (7.4-10.4) 06/02/24 15:29 Neut % (Auto) 61.9 % 06/01/24 09:25 Lymph % (Auto) 27.5 % 06/01/24 09: Cloud % (Auto) 9.4 % 06/01/24 09: Eos % (Auto) 0.5 % 06/01/24 09: Baso % (Auto) 0.3 % 06/01/24 09: Neut # (Auto) 4.77 10^3/uL (1.8-7.7) 06/01/24 09: Lymph # (Auto) 2.1 10^3/uL (0.8-4.8) 06/01/24 09:25 Cloud # (Auto) 0.7 10^3/uL (0.2-0.9) 06/01/24 09: Eos # (Auto) 0.0 10^3/uL (0.0-0.8) 06/01/24 09: Baso # (Auto) 0.0 10^3/uL (0.0-0.1) 06/01/24 09: Nucleated RBC % (auto) 0 % 06/01/24 09: Nucleated RBCs # 0.0 /100WBC 06/01/24 09:25 Blood Type A Positive 06/01/24: Rho(D) Type Rh positive 06/01/24 09:25 Antibody Screen Negative 06/01/24 09: Vitals Last Vital Signs Temp 98.0 F 06/02/24 22:00 Pulse 93 06/02/24 22:00 Resp 18 06/02/24 22:00 BP 127/68 06/02/24 22:00 Pulse Ox 97 06/02/24 22:00 O2 Del Method Room Air 06/02/24 22:00 Results Labs OB ([facility]): Obstetrics US 05/18/24 Blood Type A Positive 06/01/24 Antibody Screen Negative 06/01/24 Hct 32.3 % (36-47) L 06/02/24 Hgb 11.10 g/dL (11.27-16.99) L 06/02/24 Rho(D) Type Rh positive 06/01/24 Plt Count 191 10^3/cmm (157-399) 06/02/24 Hep Bs Antigen Non-reactive (Nonreactive) 11/12/23 Hepatitis C Antibody Non-reactive (Nonreactive) 11/12/23 Rubella IgG Antibody 32.8 IU/mL (0.0-10.0) H 11/12/23 RPR Nonreactive (Nonreactive) 11/12/23 HIV 1&2 Ab & HIV 1 Ag Non-reactive (Non-Reactiv) 11/12/23 TSH 1.79 uIU/mL (0.27-4.20) 04/18/24 Free T4 0.80 ng/dL (0.82-1.77) L 12/23/23 C.trachomatis RNA (TMA) Not detected (NOT DETECTED) 12/24/23 N.gonorrhoeae RNA (TMA) Not detected (NOT DETECTED) 12/24/23 T. vaginalis Amp RNA Not detected (NOT DETECTED) 12/24/23 Chlamydia/GC Comment See note 12/24/23 Cystic Fibrosis Screen Negative 11/12/23 Glucose 1 Hr 50 gm 130 mg/dL (85-140) 02/10/24 Hemoglobin A1c 5.4 % (4.0-6.0) 10/26/23 Ser , Semi-Qnt 94878.00 mIU/mL 10/26/23 HCG, Qual Positive (Negative) H 10/26/23 Urine Opiates Screen Negative ng/mL (Negative) 11/12/23 Ur Barbiturates Screen Negative ng/mL (Negative) 11/12/23 Ur Phencyclidine Scrn Negative ng/mL (Negative) 11/12/23 Ur Amphetamines Screen Negative ng/mL (Negative) 11/12/23 U Benzodiazepines Scrn Negative ng/mL (Negative) 11/12/23 Urine Cocaine Screen Negative ng/mL (Negative) 11/12/23 U Marijuana (THC) Screen Negative ng/mL (Negative) 11/12/23 Micro Urine Specimen 12/24/23 Pap Smear Interpret See note 04/27/23 Discharge Plan Discharge Condition: Stable Prescriptions: Continued famotidine 20 mg tablet 20 mg PO BID Qty: 180 1RF sertraline 100 mg tablet 200 mg PO DAILY Qty: 60 2RF lamotrigine 50 mg tablet extended release 24hr See Rx Instructions .ROUTE .COMPLEX Qty: 30 2RF Dose Instruction: Take 1 tablet by mouth once daily Rx Instructions: Take 1 tablet by mouth once daily fluticasone propionate [Flonase Allergy Relief] 50 mcg/actuation spray,suspension 2 spray intranasal DAILY Qty: 16 2RF Rx Instructions: administer into each nostril buspirone 5 mg tablet 5 mg PO TID PRN cholecalciferol (vitamin D3) 25 mcg (1,000 unit) capsule 25 mcg PO DAILY DHA 200 mg capsule 200 mg PO DAILY biotin 1 mg capsule 1 mg PO DAILY tizanidine 2 mg tablet 2 mg PO Q8H PRN (Reason: muscle spasticity) Qty: 90 0RF metoclopramide HCl 10 mg tablet See Rx Instructions .ROUTE .COMPLEX Qty: 120 0RF Dose Instruction: TAKE 1 TABLET BY MOUTH EVERY 6 HOURS NEEDED FOR NAUSEA AND VOMITING Rx Instructions: TAKE 1 TABLET BY MOUTH EVERY 6 HOURS NEEDED FOR NAUSEA AND VOMITING levothyroxine 25 mcg tablet 25 mcg PO DAILY Qty: 90 1RF Discharge Orders: Discharge Order (Routine); Ordered 06/03/24 Ordered By: Carley Devine Discharge Diet: Regular Discharge Activity: Increase activity as tolerated Patient Instructions: Depression (DC), Opioid Safety (DC), Preeclampsia and Eclampsia After Delivery (GEN), Hemorrhage (DC), OB Discharge Report, OB Food/Drug Interaction Guide, Opioid Safety, OB Home Care, OB Vaginal Deliveries - [facility], Abnormal Bleeding Activity Restrictions/Additional Instructions: Avoid strenuous activities No sexual intercourse x 6 weeks. Assessment: S/p Plan of Treatment: Discharge to home Patient to follow-up in [address] Martinez Discharge Attestations [employer] Time Spent in Discharge Care*: less than 30 min Coding Level of Care Code Acute Code for Chg Fwd Diagnoses Vaginal delivery O80
[2024-06-03] MEDS: ibuprofen 800 mg tablet PO (09:03)
[2024-06-03] MEDS: PRENATAL VIT NO.130/IRON/FOLIC 1 EACH TABLET PO (09:03)
[2024-06-03] MEDS: docusate sodium 100 mg Capsule PO (09:04)
[2024-06-03 09:07] VITALS: BP 114/68; PULSE 85; RESP 17; TEMP 36.7; O2SAT 97
[2024-06-03 11:38] VITALS: BP 114/68; PULSE 85; RESP 17; TEMP 36.7; O2SAT 97
== END 2024-06-03 11:38 | disposition home or self-care (01) | DRG 807 ==
LOC: OPOB 09:42 → OBGYN 09:42
PROVIDERS: Admitting Provider Obstetrics & Gynecology; PCP Family Medicine Adult Medicine; Visit Provider Obstetrics & Gynecology
DX: O48.0 Post-term pregnancy (principal); Z37.0 Single live birth; Z3A.40 40 weeks gestation of pregnancy; O99.824 Streptococcus B carrier state complicating childbirth; O70.1 Second degree perineal laceration during delivery; O67.9 Intrapartum hemorrhage, unspecified
CPT/HCPCS: 36415; 51702; 59025; 59409; 85025; 85027; 86850; 86900; 96372; 96374; 98960; J0290; J2405; J2590; J2795; J3010; J7030; J7799

== ENCOUNTER → 2024-10-26 13:37 | Outpatient (BNVA) | payer BC, SELFPAY | PROVIDERS: Family Provider Family Medicine; PCP Family Medicine; Visit Provider Family Medicine | DX: E28.2 Polycystic ovarian syndrome (principal); E03.8 Other specified hypothyroidism; Z13.6 Encounter for screening for cardiovascular disorders; R25.2 Cramp and spasm | CPT/HCPCS: 80053; 80061; 83036; 83525; 83735; 84439; 84443; 85025 ==